=== PATIENT | female | born 1940 | race Caucasian/White ===

== ENCOUNTER → 2016-06-27 | Outpatient (CLI) | payer BC ==
[2016-06-27 14:17] LABS: BLOOD UREA NITROGEN 18 mg/dl (7-18); BUN/CREATININE RATIO 16.3 (10-20); CALCIUM 9.1 mg/dl (8.5-10.1); CARBON DIOXIDE 30 mmol/L (21-32); CHLORIDE 106 mmol/L (98-107); GLUCOSE 103 mg/dl (70-99); POTASSIUM 4.1 mmol/L (3.5-5.1); SODIUM 143 mmol/L (136-145)
[2016-06-27 14:20] LABS: CHOLESTEROL 187 mg/dl (0-200); CHOLESTEROL/HDL RATIO 3.1; HDL CHOLESTEROL 60 mg/dl; TRIGLYCERIDES 213 mg/dl (0-150); VERY LOW DENSITY LIPOPROT CALC 43 mg/dl
[2016-06-27 14:26] LABS: ESTIMATED AVERAGE GLUCOSE 117 mg/dl; HA1C FLAG Normal (Normal)
== END | disposition home or self-care (01) ==
LOC: C.LABSPEC 12:43
PROVIDERS: ATTEND Internal Medicine
DX: Z00.00 Encounter for general adult medical examination without abnormal findings (principal); E78.5 Hyperlipidemia, unspecified; R73.9 Hyperglycemia, unspecified; M19.90 Unspecified osteoarthritis, unspecified site

== ENCOUNTER → 2016-07-21 | Outpatient (CLI) | payer BC ==
--- NOTE | 2016-07-21 15:08 | MAMMOGRAPHY REPORT ---
BILATERAL DIGITAL SCREENING MAMMOGRAM TOMOSYNTHESIS WITH CAD: 07/21/2016 CLINICAL HISTORY: Routine screening. Patient has no complaints. TECHNIQUE: Breast tomosynthesis in addition to standard 2D mammography was performed. Current study was also evaluated with a Computer Aided Detection (CAD) system. COMPARISON: Comparison is made to exams dated: 07/15/2015 mammogram, 07/10/2014 mammogram, 07/09/2013 mammogram, 07/06/2012 mammogram, 07/01/2010 mammogram, and 06/30/2009 mammogram - [facility]. BREAST COMPOSITION: The tissue of both breasts is almost entirely fatty. FINDINGS: No suspicious masses, calcifications, or areas of architectural distortion are noted in e ither breast. There has been no significant interval change compared to prior exams. Scattered bilat eral benign-appearing calcifications are not significantly changed. IMPRESSION: ACR BI-RADS CATEGORY 2: BENIGN There is no mammographic evidence of malignancy. A 1 year screening mammogram is recommended. The p atient will receive written notification of the results. Approximately 10% of breast cancers are not detected with mammography. A negative mammographic repor t should not delay biopsy if a clinically suggestive mass is present. Mary Lennon M.D. ah/:07/21/2016 10:29:16 Guest Service Host: Keyla MILNER)(Kary), [facility] letter sent: Normal 1/2 BI-RADS Code: ACR BI-RADS Category 2: Benign
== END | disposition home or self-care (01) ==
LOC: C.MAMM 09:41
PROVIDERS: ATTEND Internal Medicine
DX: Z12.31 Encounter for screening mammogram for malignant neoplasm of breast (principal)

== ENCOUNTER → 2016-12-26 | Outpatient (CLI) | payer BC ==
[2016-12-26 13:43] LABS: ESTIMATED AVERAGE GLUCOSE 117 mg/dl; HA1C FLAG Normal (Normal)
[2016-12-26 13:45] LABS: CHOLESTEROL 196 mg/dl (0-200); GLUCOSE,FASTING 104 mg/dl (70-99)
[2016-12-26 13:52] LABS: CHOLESTEROL/HDL RATIO 3.2; HDL CHOLESTEROL 62 mg/dl; TRIGLYCERIDES 207 mg/dl (0-150); VERY LOW DENSITY LIPOPROT CALC 41 mg/dl
== END | disposition home or self-care (01) ==
LOC: C.LABSPEC 12:44
PROVIDERS: ATTEND Internal Medicine
DX: R73.9 Hyperglycemia, unspecified (principal); E78.5 Hyperlipidemia, unspecified

== ENCOUNTER → 2017-03-06 | Outpatient (CLI) | payer BC | END | disposition home or self-care (01) | LOC: C.LABSPEC 12:47 | PROVIDERS: ATTEND Internal Medicine | DX: E55.9 Vitamin D deficiency, unspecified (principal) ==

== ENCOUNTER → 2017-06-27 | Outpatient (CLI) | payer BC ==
[2017-06-27 13:29] LABS: HEMOGLOBIN A1C 5.8 % (4.5-5.6)
[2017-06-27 14:10] LABS: CHOLESTEROL 189 mg/dl (0-200); LDL CHOLESTEROL (DIRECT) 117 mg/dl
== END | disposition home or self-care (01) ==
LOC: C.LABSPEC 12:35
PROVIDERS: ATTEND Internal Medicine
DX: Z00.01 Encounter for general adult medical examination with abnormal findings (principal); R73.9 Hyperglycemia, unspecified

== ENCOUNTER → 2017-07-24 | Outpatient (CLI) | payer BC ==
--- NOTE | 2017-07-25 07:40 | MAMMOGRAPHY REPORT ---
BILATERAL DIGITAL SCREENING MAMMOGRAM TOMOSYNTHESIS WITH CAD: 07/24/2017 CLINICAL HISTORY: Routine screening. Patient has no complaints. TECHNIQUE: Breast tomosynthesis in addition to standard 2D mammography was performed. Current study was also evaluated with a Computer Aided Detection (CAD) system. COMPARISON: Comparison is made to exams dated: 07/21/2016 mammogram, 07/15/2015 mammogram, 07/10/2014 ma mmogram, 07/09/2013 mammogram, 07/06/2012 mammogram, and 07/05/2011 mammogram - [facility]ter. BREAST COMPOSITION: The tissue of both breasts is almost entirely fatty. FINDINGS: There are benign-appearing rodlike and coarse calcifications in the breasts. No suspicious mass, architectural distortion or cluster of microcalcifications is seen. IMPRESSION: ACR BI-RADS CATEGORY 1: NEGATIVE There is no mammographic evidence of malignancy. A 1 year screening mammogram is recommended. The pa tient will receive written notification of the results. Approximately 10% of breast cancers are not detected with mammography. A negative mammographic report should not delay biopsy if a clinically suggestive mass is present. Darline Lemons M.D. ay/:07/24/2017 10:17:38 Family Day Care Worker: Keyla MCDONALD(Rosaline)(Kary), [facility] letter sent: Normal 1/2 BI-RADS Code: ACR BI-RADS Category 1: Negative
== END | disposition home or self-care (01) ==
LOC: C.MAMM 09:37
PROVIDERS: ATTEND Internal Medicine
DX: Z12.31 Encounter for screening mammogram for malignant neoplasm of breast (principal)

== ENCOUNTER 2018-10-22 13:58 | Inpatient (IN) ==
[2018-10-22] MEDS ORDERED: fentaNYL citrate 100 MCG/2 ML VIAL IV STA (14:37)
[2018-10-22] MEDS ORDERED: ONDANSETRON INJ 2 MG/ML 2 ML VIAL IV STA (14:37)
[2018-10-22] MEDS ORDERED: SODIUM CHLORIDE 0.9% 1000ML 1,000 ML IV ONE (14:37)
--- NOTE | 2018-10-22 15:07 | Emergency Department Note ---
ED Provider Note CHIEF COMPLAINT: Diffuse abdominal pain, vomiting HISTORY OF PRESENTING ILLNESS: This is a 78-year-old female who presents to the emergency department by private vehicle with complaint of diffuse abdominal pain and vomiting that started around midnight last night. She states that she started with abdominal pain first and the vomiting started about 2 hours after that, she has vomited several times. The abdominal pain is diffuse, came on gr adually and has gotten progressively worse, she currently rates it as 7/10. She states that the pain feels better right after she vomits, but then starts to come back again. She has not tried any medications for her symptoms. She reports the emesis appears like mucus and bile, she denies any coffee-ground emesis or blood. She has not had any diarrhea with her symptoms. She denies any recent unusual foods or sick contacts with similar symptoms. She does note that she had some similar issues about 2 months ago where she was having difficulty eating and abdominal pain, she states that she was admitted at [facility] for dehydration and acute renal failure. She also states that she is followed by Dr. Dietz with GI, and had an endoscopy recently that did not show any issues. She has a history of IBS as well. She reports a history of an appendectomy and denies any other abdominal surgeries. She denies any headaches, vision changes, dizziness or syncope, neck pain, chest pain, shortness of breath, cough, back pain, urinary complaints, or unusual rash. REVIEW OF SYSTEMS: A complete 10 point review of systems was reviewed with the patient with pertinent positives and negatives as per history of present illness. All else were negative. PAST MEDICAL HISTORY: Hypertension, hyperlipidemia, GERD, IBS SOCIAL HISTORY: Lives at home with family, she is a former smoker ALLERGIES: None reviewed in chart PHYSICAL EXAM: CONSTITUTIONAL: Pleasant and cooperative. Nontoxic-appearing and in no acute distress. Mildly dehydrated, but otherwise well appearing and well nourished. HEENT: Normocephalic, atraumatic. PERRL, EOMI. TMs normal. Pharynx normal. Tacky mucous membranes. NECK: Supple, full active range of motion without discomfort. No cervical adenopathy. RESPIRATORY: Clear to auscultation bilaterally with no wheezing, crackles, rhonchi or stridor. Equal expansion bilaterally. CARDIOVASCULAR: Regular rate and rhythm with no murmurs, rubs or gallops. Normal peripheral perfusion. No edema. GASTROINTESTINAL: Diffuse tenderness throughout the abdomen, most tender in the lower abdomen. No rebound tenderness or guarding. Slightly distended, obese abdomen. Soft abdomen. No palpable masses or HSM. Hypoactive bowel sounds in all quadrants. No CVA tenderness bilaterally. MUSCULOSKELETAL: Full range of motion of all joints without discomfort. INTEGUMENTARY: No rash or other significant dermatologic conditions noted. NEUROLOGIC: Alert and oriented X 4 with normal affect. Normal speech. Normal gait observed. ED COURSE AND MEDICAL DECISION MAKING: CC: Patient presenting with complaint of abdominal pain, vomiting DIFFERENTIAL DIAGNOSIS: Includes, but not limited to gastroenteritis, gastritis, peptic ulcer disease, cholecystitis, cholelithiasis, pancreatitis, esophagitis, small bowel obstruction, infectious colitis, diverticulitis, acute coronary syndrome, dehydration, electrolyte abnormality, acute kidney injury, among others. INTERPRETATION OF LABS: Mild leukocytosis, no anemia, normal platelets, no significant electrolyte abnormalities, mildly elevated BUN and creatinine, normal liver enzymes and lipase. Troponin negative. UA pending. IMAGING: ABDOMEN AND PELVIS CT WITH IV CONTRAST CT DOSE: 890.66 mGycm HISTORY: diffuse abd pain, vomiting TECHNIQUE: Multiaxial CT images of the abdomen and pelvis were performed following the use of intravenous contrast. A dose lowering technique was utilized adhering to the principles of ALARA. COMPARISON STUDY: Abdomen and pelvis CT 09/20/2017. FINDINGS: The lung bases are clear. No pneumoperitoneum. No pneumatosis. No suspicious lytic or blastic osseous lesions. Small hiatus hernia. Multiple hypodense lesions within the liver and kidneys are again noted. Multiple hepatic and renal hypodense lesions are again noted. The majority of these are stable in size. A 2 cm hypodense lesion within the interpolar region of the left kidney has increased in size from the prior study when it measured 1 cm. This is best seen on image 120 The gallbladder, spleen, adrenal glands, and pancreas are unremarkable. No hydronephrosis. Calcified plaque within the normal caliber abdominal aorta. The main portal vein is patent. Normal bladder. Hysterectomy. Trace pelvic fluid. The appendix is not identified and reportedly surgically absent. The colon is completely decompressed. Fluid-filled and distended ileal loops within the midabdomen and right lower quadrant. There is trace mesenteric fluid surrounding the distended ileal loops. These measure up to 3.4 cm in diameter and are consistent with a small bowel obstruction. The transition point is located at the distal ileum within the right lower quadrant on image 55. IMPRESSION: 1. Multiple distended and fluid-filled loops of small bowel consistent with a small bowel obstruction with a transition point located at the distal ileum within the right lower quadrant. This is likely due to an adhesion. 2. Trace mesenteric/pelvic fluid. This may be reactive to the small bowel obstruction. 3. Multiple hepatic and renal hypodense lesions are again noted. The majority of these are stable in size. A 2 cm hypodense lesion within the interpolar region of the left kidney has increased in size from the prior study when it measured 1 cm. Continued follow-up recommended to ensure stability. EKG: Shows normal sinus rhythm with a rate of 96 bpm, normal axis, normal intervals, no ST or T wave abnormalities, no ectopy, no significant change when compared to previous EKG from 10/05/2017 by my interpretation. MEDICATION RECONCILIATION: I attest that I have personally reviewed the patient's current medication list. INITIAL VITAL SIGNS REVIEW: I reviewed the patient's initial vital signs and interpret them as follows: T: Afebrile; BP: Hypertensive; HR: Tachycardic; RR: Within normal limits; Pulse Ox: Within normal limits on room air. Blood pressure screening: The patient was found to have an elevated blood pressure and was referred to the inpatient team for further management. MDM SUMMARY: Patient was evaluated at bedside, history and physical exam performed. Patient is alert and oriented, in no acute distress, resting calmly in the stretcher. There is diffuse tenderness throughout the abdomen, most tender in the lower abdomen, with quiet bowel sounds. Patient complains of nausea but is not actively vomiting. She does appear mildly dehydrated. EKG reviewed at bedside, noting sinus rhythm with no acute ischemic changes. Orders were placed at bedside for labs, UA, IV fluid bolus for hydration, IV fentanyl for pain, IV Zofran for nausea, CT abdomen/pelvis to evaluate for abdominal pain and vomiting. Patient discussed with Dr. Guallpa, who also evaluated the patient and agrees with my assessment, plan, and disposition. Labs and imaging reviewed as above, mild leukocytosis and mildly elevated BUN/creatinine noted on labs. CT imaging notable for a small bowel obstruction with a transition point in the right lower quadrant, suspected secondary to adhesion. I spoke on the phone with Dr. Angel, general surgery, who did not feel the patient warranted urgent surgical intervention at this time. He recommends admitting the patient to the medicine service and he is happy to consult on the patient. Patient reassessed multiple times throughout ED stay, she has remained hemodynamically stable and afebrile, and reports her pain and nausea are improved after the above treatment. The patient and her family were updated on all results and plan for admission, they verbalized understanding and were agreeable to this plan. I spoke on the phone with PB Boyle with the [facility] Hospitalist service, who agrees to evaluate the patient for admission. The patient was stable at time of admission. The chart was completed utilizing [employer] Speech voice recognition software. Grammatical errors, random word insertions, pronoun errors, and incomplete sentences are an occasional consequence of this system due to software limitations, ambient noise, and hardware issues. Any formal questions or concerns about the content, text, or information contained within the body of this dictation should be directly addressed to the nurse practitioner for clarification. Impression & Plan SBO (small bowel obstruction) Past Med/Surg History Medical History SBO (small bowel obstruction) (Acute) GERD (gastroesophageal reflux disease) History of colon polyps Hyperlipidemia Hypertension Kidney failure recent admission 07/23/18-07/26/18 d/t dehydration Surgical History History of appendectomy History of bilateral cataract extraction History of biopsy of bladder benign History of colonoscopy History of dilatation and curettage x2 History of esophagogastroduodenoscopy (EGD) History of tooth extraction all teeth removed History of vaginal hysterectomy Family History Mother Family history of diabetes mellitus Father Family hx of colon cancer Other No family history of adverse response to anesthesia Social History Preferred Language: Vietnamese Communication Ability: Effective Beliefs That Will Affect Care: None Current Living Situation: Spouse Feels Safe at Home: Yes Smoking Status: Former smoker Second Hand Exposure: Yes (father smoked) Hx Alcohol Use: Yes Alcohol type: wine Hx Substance Use: No Results & Data Vital Signs Vital Signs - 24 hr 10/22/18 14:04 10/22/18 15:15 10/22/18 15:30 Temperature 36.3 C L Temperature Source Oral Sepsis Recent Fever Within 48 Hours No Sepsis New/Unexplained Change in Mental Status No Sepsis Action Taken by Nursing No Action Required Pulse Rate 113 H 85 Pulse Rate [Apical] 88 Pulse Rate from SpO2 Sensor 85 Respiratory Rate 20 18 14 Respiratory Effort / Characteristics Blood Pressure 172/87 H 147/87 H Blood Pressure [Left Arm] 162/78 H Blood Pressure Mean 115 107 Blood Pressure Mean [Left Arm] 106 Blood Pressure Position [Left Arm] Pulse Oximetry 99 99 96 Oxygen Delivery Method Room Air Room Air Room Air 10/22/18 16:02 10/22/18 17:00 10/22/18 17:07 Temperature Temperature Source Sepsis Recent Fever Within 48 Hours Sepsis New/Unexplained Change in Mental Status Sepsis Action Taken by Nursing Pulse Rate 86 89 Pulse Rate [Apical] 87 Pulse Rate from SpO2 Sensor 86 87 Respiratory Rate 15 13 16 Respiratory Effort / Characteristics Non-Labored Spontaneous Blood Pressure 154/97 H Blood Pressure [Left Arm] 154/98 H Blood Pressure Mean 116 Blood Pressure Mean [Left Arm] 116 Blood Pressure Position [Left Arm] Lying Pulse Oximetry 98 96 98 Oxygen Delivery Method Room Air Room Air Room Air 10/22/18 18:00 Temperature Temperature Source Sepsis Recent Fever Within 48 Hours Sepsis New/Unexplained Change in Mental Status Sepsis Action Taken by Nursing Pulse Rate 88 Pulse Rate [Apical] Pulse Rate from SpO2 Sensor Respiratory Rate 22 Respiratory Effort / Characteristics Blood Pressure Blood Pressure [Left Arm] Blood Pressure Mean Blood Pressure Mean [Left Arm] Blood Pressure Position [Left Arm] Pulse Oximetry Oxygen Delivery Method Laboratory Data Result diagrams: 10/22/18 15:10 10/22/18 15:10 Lab Results 10/22/18 10/22/18 Range/Units 15:10 15:10 WBC 12.22 H (4.8-10.8) K/uL RBC 4.84 (4.2-5.4) M/uL Hgb 14.6 (12.0-16.0) g/dL Hct 42.7 (37-47) % MCV 88.2 (80-100) fL MCH 30.2 (25-34) pg MCHC 34.2 (32-36) g/dL RDW Std Deviation 45.1 (36.4-46.3) fL RDW Coeff of Jonny 13.9 (11.5-14.5) % Plt Count 217 (130-400) K/uL MPV 8.9 (7.4-10.4) fL Immature Gran % (Auto) 0.2 % Neut % (Auto) 80.0 % Lymph % (Auto) 14.1 % Waller % (Auto) 5.3 % Eos % (Auto) 0.1 % Baso % (Auto) 0.3 % Immature Gran # (Auto) 0.03 H (0.00-0.02) K/uL Neut # (Auto) 9.77 H (1.4-6.5) K/uL Lymph # (Auto) 1.72 (1.2-3.4) K/uL Waller # (Auto) 0.65 H (0.11-0.59) K/uL Eos # (Auto) 0.01 (0-0.5) K/uL Baso # (Auto) 0.04 (0-0.2) K/uL Sodium 140 (136-145) mmol/L Potassium 4.4 (3.5-5.1) mmol/L Chloride 104 (98-107) mmol/L Carbon Dioxide 28 (21-32) mmol/L Anion Gap 8.0 (3-11) BUN 20 H (7-18) mg/dl Creatinine 1.37 H (0.6-1.2) mg/dl Est Cr Clr Drug Dosing 35.7 ml/min Est GFR ( Amer) 43.3 Est GFR (Non-Af Amer) 37.4 BUN/Creatinine Ratio 14.6 (10-20) Glucose 125 H (70-99) mg/dl Calcium 9.8 (8.5-10.1) mg/dl Magnesium 2.3 (1.8-2.4) mg/dl Total Bilirubin 0.5 (0.2-1) mg/dl AST 9 L (15-37) U/L ALT 19 (12-78) U/L Alkaline Phosphatase 80 (45-117) U/L Troponin I < 0.015 (0-0.045) ng/ml Total Protein 8.1 (6.4-8.2) gm/dl Albumin 4.2 (3.4-5.0) gm/dl Globulin 3.9 (2.5-4.0) gm/dl Albumin/Globulin Ratio 1.1 (0.9-2) Lipase 248 (73-393) U/L Administered Medications Ioversol (Optiray 320 100ml) 95 ml IV ONCE PRN PRN Reason: Interaction Checking Stop: 10/26/18 16:32 Last Admin: 10/22/18 16:33 Dose: 95 ml Documented by: [id number] Discontinued Medications Fentanyl Citrate (Fentanyl Citrate) 50 mcg IV NOW STA Stop: 10/22/18 14:38 Last Admin: 10/22/18 15:11 Dose: 50 mcg Documented by: [id number] Sodium Chloride (Nss 1000ml) 1,000 mls @ 999 mls/hr IV .Q1H1M ONE Stop: 10/22/18 15:37 Last Infusion: 10/22/18 16:08 Dose: 0 mls/hr Documented by: [id number] Admin: 10/22/18 15:07 Dose: 999 mls/hr Documented by: [id number] Ondansetron HCl (Zofran) 4 mg IV NOW STA Stop: 10/22/18 14:38 Last Admin: 10/22/18 15:10 Dose: 4 mg Documented by: [id number] Discharge Plan Visit Data Chief Complaint: Vomiting Stated Complaint: VOMITING ED Provider: Patrice Guallpa ED Midlevel Provider: Analy Hinds Discharge Problem: SBO (small bowel obstruction) Patient Disposition: Being Evaluated by Surgeon Discharge Instructions Interventions: ED Discharge Assessment Last Done: 10/22/18 18:56
[2018-10-22 15:20] LABS: Basophils # (auto) 0.04 K/uL (0-0.2); Basophils % (auto) 0.3 %; Eosinophils # (auto) 0.01 K/uL (0-0.5); Eosinophils % (auto) 0.1 %; Hematocrit (blood only) 42.7 % (37-47); Hemoglobin 14.6 g/dL (12.0-16.0); Immature Granulocytes # (auto) 0.03 K/uL (0.00-0.02); Immature Granulocytes % (auto) 0.2 %; Lymphocytes # (auto) 1.72 K/uL (1.2-3.4); Lymphocytes % (auto) 14.1 %; Mean Corpuscular Hgb Conc 34.2 g/dL (32-36); Mean Corpuscular Volume 88.2 fL (80-100); Mean Platelet Volume 8.9 fL (7.4-10.4); Monocytes # (auto) 0.65 K/uL (0.11-0.59); Monocytes % (auto) 5.3 %; Neutrophils # (auto) 9.77 K/uL (1.4-6.5); Platelet Count 217 K/uL (130-400); RDW Coefficient of Variation 13.9 % (11.5-14.5); RDW Standard Deviation 45.1 fL (36.4-46.3); Red Blood Count 4.84 M/uL (4.2-5.4); White Blood Count 12.22 K/uL (4.8-10.8)
[2018-10-22 15:35] LABS: Alanine Aminotransferase 19 U/L (12-78); Albumin Level 4.2 gm/dl (3.4-5.0); Aspartate Aminotransferase 9 U/L (15-37); BUN Creatinine Ratio 14.6 (10-20); Blood Urea Nitrogen 20 mg/dl (7-18); Calcium 9.8 mg/dl (8.5-10.1); Carbon Dioxide 28 mmol/L (21-32); Chloride 104 mmol/L (98-107); Creatinine Clr Calc Pharmacy 35.7 ml/min; Est GFR (African American) 43.3; Est GFR (Non-African American) 37.4; Glucose 125 mg/dl (70-99); Magnesium 2.3 mg/dl (1.8-2.4); Potassium 4.4 mmol/L (3.5-5.1); Sodium 140 mmol/L (136-145)
[2018-10-22 15:40] LABS: Albumin Globulin Ratio 1.1 (0.9-2); Alkaline Phosphatase 80 U/L (45-117); Bilirubin,Total 0.5 mg/dl (0.2-1); Globulin 3.9 gm/dl (2.5-4.0); Total Protein 8.1 gm/dl (6.4-8.2); Troponin I < 0.015 ng/ml (0-0.045)
[2018-10-22] MEDS ORDERED: IOVERSOL 100ml IV PRN (16:33)
--- NOTE | 2018-10-22 16:48 | CT Scan Report ---
ABDOMEN AND PELVIS CT WITH IV CONTRAST CT DOSE: 890.66 mGycm HISTORY: diffuse abd pain, vomiting TECHNIQUE: Multiaxial CT images of the abdomen and pelvis were performed following the use of intrave nous contrast. A dose lowering technique was utilized adhering to the principles of ALARA. COMPARISON STUDY: Abdomen and pelvis CT 09/20/2017. FINDINGS: The lung bases are clear. No pneumoperitoneum. No pneumatosis. No suspicious lytic or blast ic osseous lesions. Small hiatus hernia. Multiple hypodense lesions within the liver and kidneys are again noted. Multiple hepatic and renal hypodense lesions are again noted. The majority of these are stable in size. A 2 cm hypodense lesion within the interpolar region of the left kidney has increased in size from the prior study when it measured 1 cm. This is best seen on image 120 The gallbladder, spleen, adrenal glands, and pancreas are unremarkable. No hydronephrosis. Calcified plaque within the normal caliber abdominal aorta. The main portal vein is patent. Normal bladder. Hysterectomy. Trace pelvic fluid. The appendix is not identified and reportedly surgically absent. The colon is completel y decompressed. Fluid-filled and distended ileal loops within the midabdomen and right lower quadrant . There is trace mesenteric fluid surrounding the distended ileal loops. These measure up to 3.4 cm i n diameter and are consistent with a small bowel obstruction. The transition point is located at the distal ileum within the right lower quadrant on image 55. IMPRESSION: 1. Multiple distended and fluid-filled loops of small bowel consistent with a small bowel obstruction with a transition point located at the distal ileum within the right lower quadrant. This is likely due to an adhesion. 2. Trace mesenteric/pelvic fluid. This may be reactive to the small bowel obstruction. 3. Multiple hepatic and renal hypodense lesions are again noted. The majority of these are stable in size. A 2 cm hypodense lesion within the interpolar region of the left kidney has increased in size f rom the prior study when it measured 1 cm. Continued follow-up recommended to ensure stability. Electronically signed by: Bernardo Koehler M.D. 10/22/2018 4:47 PM
--- NOTE | 2018-10-22 17:44 | History & Physical Report ---
Date of Service October 22, 2018 Assessment & Plan (1) SBO (small bowel obstruction): Patient with a history of appendectomy and hysterectomy. On CT: 1. Multiple distended and fluid-filled loops of small bowel consistent with a small bowel obstruction with a transition point located at the distal ileum within the right lower quadrant. This is likely due to an adhesion. 2. Trace mesenteric/pelvic fluid. This may be reactive to the small bowel obstruction. - Admit obs med surg - ED discussed with Dr. Angel - no surgical intervention at this time - will consult surgery - IVF, pain control, anti emetics (2) Leukocytosis: WBCs 12.22 U/A with epithelial cells and leuk esterase May be inflammatory reaction from SBO vs enteritis? Hold off on abx for now, recheck CBC am Check stool for Cdiff, culture (3) Hyperlipidemia: Continue home pravastatin (4) Hypertension: Continue metoprolol (5) GERD (gastroesophageal reflux disease): Continue ranitidine (6) Renal lesion: On CT seen incidentally: Multiple hepatic and renal hypodense lesions are again noted. The majority of these are stable in size. A 2 cm hypodense lesion within the interpolar region of the left kidney has increased in size from the prior study when it measured 1 cm. Continued follow-up recommended to ensure stability. (7) DVT prophylaxis: SCDs History of Present Illness Ms. Toribio presented today for abdominal pain and vomiting starting at midnight last night. She has been feeling much better since arriving at the ED, pain is controlled, one episode of emesis. No changes in bowels. No fevers, aches or chills. Patient had recent admission to [facility] for [facility] due to dehydration secondary to difficulty swallowing. She had an EDG performed by Dr. Dietz which she says did not show any problems. Pmhx: spastic bowel, GERD, htn Primary Care Provider: Lio Muir MD Allergies Allergy/AdvReac Type Severity Reaction Status Date / Time chlorhexidine Allergy Intermediate RASH/HIVES Verified 10/22/18 14:54 iodine Allergy Intermediate RASH/HIVES Verified 10/22/18 14:54 Home Medications Home Medications Medication Instructions Recorded Confirmed Type Calcium 600 + D(3) 1 cap PO BID 08/06/18 10/22/18 History PreserVision AREDS 1 cap PO BID 08/06/18 10/22/18 History aspirin 81 mg PO QAM 08/06/18 10/22/18 History dicyclomine 20 mg PO BID 08/06/18 10/22/18 History metoprolol tartrate 50 mg PO HS 08/06/18 10/22/18 History pravastatin 40 mg PO HS 08/06/18 10/22/18 History ranitidine HCl 150 mg PO BID 08/06/18 10/22/18 History Past Med/Surg History Medical History GERD (gastroesophageal reflux disease) History of colon polyps Hyperlipidemia Hypertension Kidney failure recent admission 07/23/18-07/26/18 d/t dehydration Surgical History History of appendectomy History of bilateral cataract extraction History of biopsy of bladder benign History of colonoscopy History of dilatation and curettage x2 History of esophagogastroduodenoscopy (EGD) History of tooth extraction all teeth removed History of vaginal hysterectomy Family History Mother Family history of diabetes mellitus Father Family hx of colon cancer Other No family history of adverse response to anesthesia Social History Preferred Language: Welsh Communication Ability: Effective Beliefs That Will Affect Care: None Current Living Situation: Spouse Feels Safe at Home: Yes Smoking Status: Former smoker Second Hand Exposure: Yes (father smoked) Hx Alcohol Use: Yes Alcohol type: wine Hx Substance Use: No Review of Systems Review of Systems: All systems reviewed & are unremarkable except as noted in HPI & below Physical Exam Physical Exam: General: no distress Eyes: normal inspection, PERLL Respiratory: chest non tender, clear to auscultation, normal breath sounds, no respiratory distress, no accessory muscle use Cardiac: regular rate and rhythm, no rub or gallop, no murmur, no edema, no jvd GI/: active bowel sounds, no abd pain or tenderness, soft, non distended Extremities: normal range of motion, normal strength, non tender Neuro/Psych: alert and oriented x 3, normal mood and affect Skin: normal color, dry Results & Data Vital Signs (Past 12 Hours) Vital Signs Temp Pulse Pulse Resp BP BP Pulse Ox 10/22/18 17:07 87 16 154/98 H 98 10/22/18 15:30 85 14 147/87 H 96 10/22/18 15:15 88 18 162/78 H 99 10/22/18 14:04 36.3 C L 113 H 20 172/87 H 99 Code Status & VTE Plan Code Status No mechanical ventilation Supervising Physician Co-Signing Physician Notes ELEMENTARY TEACHER Physician Supervision Note: I discussed with Analy Norris ELEMENTARY TEACHER and agree with findings and plan as documented in the note. Any exceptions or clarifications are listed here: None Patient seen in presence of her family in the emergency department. She has no further nausea symptoms her abdomen is with hypoactive bowel sounds slightly distended soft and nontender Patient be observed for small bowel obstruction with hopes that conservative management will remedy her problem she will be hydrated given pain and antiemetic control. Documented By: Vikas Bartholomew PG Care Time/CCT Total # of Minutes Spent Total Time Spent with Patient: Total time spent is greater than 50% in coordination of care (as documented) at patient's floor/unit and/or counseling patient:
--- NOTE | 2018-10-22 18:45 | Surgery Consultation ---
Date of Consultation October 22, 2018 Assessment & Plan (1) SBO (small bowel obstruction): At this time the patient will be admitted to the medical service tomorrow for hypertension she states that she has not taken any antihypertensive pills today performed for rehydration we will hold off NG tube at this time the patient is not nauseated and is not keen in having one in Discussed the present findings with the patient and significant other at this time nonoperative management we will obtain an upper GI with small bowel follow- through for tomorrow and hopefully this will help resolve her obstruction without requiring surgery All questions were answered from the patient and family members including the fact that if patient continues to vomiting an NG tube may be need to be inserted Present on Admission?: Yes History of Present Illness Reason for Consultation: Call for the ER physician regarding patient with a small bowel obstruction History of Present Illness This 78-year-old female was had a history of gastroesophageal reflux had been evaluated by gastroenterology in the past developed some renal failure in the p ast with been transferred to [facility] She has a history of hypertension She had a history of an appendectomy in the remote past She had less than 24-hour history of abdominal pain with associated emesis in fact as I question her in the ER now with her family member at bedside she states that she had a small emesis about an hour or so ago it was bilious in nature Allergies Allergy/AdvReac Type Severity Reaction Status Date / Time chlorhexidine Allergy Intermediate RASH/HIVES Verified 10/22/18 14:54 iodine Allergy Intermediate RASH/HIVES Verified 10/22/18 14:54 Home Medications Home Medications Medication Instructions Recorded Confirmed Type Calcium 600 + D(3) 1 cap PO BID 08/06/18 10/22/18 History PreserVision AREDS 1 cap PO BID 08/06/18 10/22/18 History aspirin 81 mg PO QAM 08/06/18 10/22/18 History dicyclomine 20 mg PO BID 08/06/18 10/22/18 History metoprolol tartrate 50 mg PO HS 08/06/18 10/22/18 History pravastatin 40 mg PO HS 08/06/18 10/22/18 History ranitidine HCl 150 mg PO BID 08/06/18 10/22/18 History Patient History Medical History SBO (small bowel obstruction) GERD (gastroesophageal reflux disease) History of colon polyps Hyperlipidemia Hypertension Kidney failure recent admission 07/23/18-07/26/18 d/t dehydration Surgical History History of appendectomy History of bilateral cataract extraction History of biopsy of bladder benign History of colonoscopy History of dilatation and curettage x2 History of esophagogastroduodenoscopy (EGD) History of tooth extraction all teeth removed History of vaginal hysterectomy Family History Mother Family history of diabetes mellitus Father Family hx of colon cancer Other No family history of adverse response to anesthesia Social History Preferred Language: Faroese Communication Ability: Effective Beliefs That Will Affect Care: None Current Living Situation: Spouse Feels Safe at Home: Yes Smoking Status: Former smoker Second Hand Exposure: Yes (father smoked) Hx Alcohol Use: Yes Alcohol type: wine Hx Substance Use: No Review of Systems Review of Systems: As stated she does have a history of hypertension appropriately treated renal failure from dehydration and previous surgery appendectomy She denies any changes in weight the GI symptoms as stated with significant reflux disease and upper GI showed gastroesophageal dysmotility Physical Exam Physical Exam: The patient is resting comfortably in bed at this time in no acute distress denies any nausea The sclerae nonicteric Oropharyngeal and tongue moist Neck subtle Abdomen is softly distended there is no localized tenderness no masses no groin hernias Results & Data Vital Signs (Past 12 Hours) Vital Signs Temp Pulse Pulse Resp BP BP Pulse Ox 10/22/18 18:27 91 H 15 161/85 H 97 10/22/18 18:00 88 22 10/22/18 17:07 87 16 154/98 H 98 10/22/18 17:00 89 13 154/97 H 96 10/22/18 16:02 86 15 98 10/22/18 15:30 85 14 147/87 H 96 10/22/18 15:15 88 18 162/78 H 99 10/22/18 14:04 36.3 C L 113 H 20 172/87 H 99 The lab was reviewed along with CT scan
[2018-10-22] MEDS ORDERED: MoRPHine SULFATE 2 MG/ML CARP IV PRN (19:17)
[2018-10-22] MEDS ORDERED: ONDANSETRON INJ 2 MG/ML 2 ML VIAL IV PRN (19:17)
[2018-10-22] MEDS: SODIUM CHLORIDE 0.9% 1000ML 1,000 ML IV SCH (19:31)
[2018-10-22] MEDS: PRAVASTATIN SOD 40 MG TAB PO SCH (22:03)
[2018-10-22] MEDS: DICYCLOMINE HCL 20 MG TAB PO SCH (22:03)
[2018-10-22] MEDS: METOPROLOL TARTRATE 50 MG TAB PO SCH (22:03)
[2018-10-22] MEDS: CALCIUM 600MG + VIT D 400 IU TAB PO SCH (22:03)
[2018-10-22] MEDS: ACETAMINOPHEN 325 MG TAB PO PRN (22:23)
[2018-10-23] MEDS: SODIUM CHLORIDE 0.9% 1000ML 1,000 ML IV SCH ×2 (05:15→17:32)
[2018-10-23 07:12] LABS: Hematocrit (blood only) 36.8 % (37-47); Hemoglobin 11.9 g/dL (12.0-16.0); Mean Corpuscular Hgb Conc 32.3 g/dL (32-36); Mean Corpuscular Volume 90.6 fL (80-100); Mean Platelet Volume 8.7 fL (7.4-10.4); Platelet Count 174 K/uL (130-400); RDW Coefficient of Variation 14.2 % (11.5-14.5); RDW Standard Deviation 47.1 fL (36.4-46.3); Red Blood Count 4.06 M/uL (4.2-5.4); White Blood Count 6.23 K/uL (4.8-10.8)
[2018-10-23 07:40] LABS: BUN Creatinine Ratio 13.3 (10-20); Calcium 8.3 mg/dl (8.5-10.1); Creatinine Clr Calc Pharmacy 42.1 ml/min; Est GFR (Non-African American) 45.7; Potassium 3.8 mmol/L (3.5-5.1)
--- NOTE | 2018-10-23 08:16 | Surgery Progress Note ---
Date of Service October 23, 2018 Assessment & Plan (1) SBO (small bowel obstruction): 1 PAD feels better await UGI with SBFT At this time the patient will be admitted to the medical service tomorrow for hypertension she states that she has not taken any antihypertensive pills today performed for rehydration we will hold off NG tube at this time the patient is not nauseated and is not keen in having one in Discussed the present findings with the patient and significant other at this ti pa nonoperative management we will obtain an upper GI with small bowel follow- through for tomorrow and hopefully this will help resolve her obstruction without requiring surgery All questions were answered from the patient and family members including the fact that if patient continues to vomiting an NG tube may be need to be inserted Subjective feels better flatus no bm no nausea Physical Exam Physical Exam: abd softer non tender Results & Data Vital Signs (Past 12 Hours) Vital Signs Temp Pulse Resp BP BP Pulse Ox 10/23/18 07:28 36.9 C 75 16 147/77 H 95 10/22/18 23:29 36.7 C 65 16 111/70 97 10/22/18 21:58 80 18 143/80 H 98
[2018-10-23] MEDS: DICYCLOMINE HCL 20 MG TAB PO SCH ×2 (08:21→20:26)
[2018-10-23] MEDS: CALCIUM 600MG + VIT D 400 IU TAB PO SCH ×2 (08:21→20:26)
[2018-10-23] MEDS: ASPIRIN 81 MG ECTAB PO SCH (08:21)
--- NOTE | 2018-10-23 10:50 | Fluoroscopy Report ---
FL GI w/air small bowel RTN CLINICAL HISTORY: 78 years-old Female presenting with small bowel obstruction. TECHNIQUE: Car Rental Service Attendant abdominal radiograph was first obtained. Subsequently, a standard air-contrast upper GI series was then performed. Spot images of the esophagus and stomach were recorded in multiple obl iquities with upright and prone. The patient then consumed further oral contrast and a small follow-t hrough was performed. Overhead radiographs and spot compression images were obtained. Contrast was fo llowed until reaching the cecum. COMPARISON: CT performed the previous day. FINDINGS: The abdominal director clinical data radiograph shows nonobstructive bowel gas pattern and no gross pneumoperitoneum. No calcifications project over the kidneys. The patient swallowed barium without difficulty. The esophagus is structurally normal without evidenc e of intrinsic or extrinsic mass. The esophageal mucosal pattern is normal. No gastroesophageal reflu x was elicited by having the patient perform the Valsalva maneuver. The gastroesophageal junction dis tends normally. The stomach is normal in configuration and demonstrates normal distensibility. No mass or ulceration is identified. There was no evidence of gastritis. The duodenal bulb and sweep are unremarkable. On the small bowel follow-through, there is only mildly delayed transit time with contrast identified in the colon at 90 minutes. The small bowel mucosal pattern is normal. There is no evidence of stric ture or mass. The distal/terminal ileum are normal in appearance on the spot compression views. Fluoroscopy dosage (mGy): Not available. Fluoroscopy time: 2.4 minutes. Number or time of high level fluoroscopy (HLF), digital spot, or digital subtraction images: 33. IMPRESSION: Only mild delay in transit time to the colon. Apparent resolution of small bowel obstruction. This ma y suggest an intermittent partial bowel obstruction. Electronically signed by: Navdeep Hubbard M.D. 10/23/2018 10:49 AM
[2018-10-23] MEDS ORDERED: POLYETHYLENE (MIRALAX) 17 GM PACK PO PRN (11:28)
[2018-10-23] MEDS: ACETAMINOPHEN 325 MG TAB PO PRN (15:50)
--- NOTE | 2018-10-23 16:15 | Hospitalist Progress Note ---
Date of Service October 23, 2018 Assessment & Plan (1) SBO (small bowel obstruction): Patient with a history of appendectomy and hysterectomy. Imaging today showed resolved SBO - consulted surgery - advance diet to full liquids (2) Leukocytosis: WBCs 12.22 on admission - resolved Check stool for Cdiff, culture (3) Hyperlipidemia: Continue home pravastatin (4) Hypertension: Continue metoprolol (5) GERD (gastroesophageal reflux disease): Continue ranitidine (6) Renal lesion: On CT seen incidentally: Multiple hepatic and renal hypodense lesions are again noted. The majority of these are stable in size. A 2 cm hypodense lesion within the interpolar region of the left kidney has increased in size from the prior study when it measured 1 cm. Continued follow-up recommended to ensure stability. (7) DVT prophylaxis: SCDs Dispo: likely home tomorrow if tolerating po Subjective Ms. Toribio is feeling better today, no further pain or vomiting. She tolerated her clear liquid tray. No BM since admission Review of Systems Review of Systems: All systems reviewed & are unremarkable except as noted in HPI & below Physical Exam Physical Exam: General: no distress Eyes: normal inspection, PERLL Respiratory: chest non tender, clear to auscultation, normal breath sounds, no respiratory distress, no accessory muscle use Cardiac: regular rate and rhythm, no rub or gallop, no murmur, no edema, no jvd GI/: active bowel sounds, no abd pain or tenderness, soft, non distended Extremities: normal range of motion, normal strength, non tender Neuro/Psych: alert and oriented x 3, normal mood and affect Skin: normal color, dry Results & Data Vital Signs (Past 12 Hours) Vital Signs Temp Pulse Resp BP Pulse Ox 10/23/18 15:11 36.6 C 72 16 146/77 H 99 10/23/18 07:28 36.9 C 75 16 147/77 H 95 PG Care Time/CCT Total # of Minutes Spent Total Time Spent with Patient: Total time spent is greater than 50% in coordination of care (as documented) at patient's floor/unit and/or counseling patient:
[2018-10-23 20:24] VITALS: O2SAT 97
[2018-10-23] MEDS: PRAVASTATIN SOD 40 MG TAB PO SCH (20:26)
[2018-10-23] MEDS: DOCUSATE SODIUM 100 MG CAP PO SCH (20:26)
[2018-10-23] MEDS: METOPROLOL TARTRATE 50 MG TAB PO SCH (20:26)
[2018-10-24] MEDS: SODIUM CHLORIDE 0.9% 1000ML 1,000 ML IV SCH (03:22)
[2018-10-24 07:01] LABS: Hematocrit (blood only) 34.4 % (37-47); Hemoglobin 11.3 g/dL (12.0-16.0); Mean Corpuscular Hgb Conc 32.8 g/dL (32-36); Mean Corpuscular Volume 88.9 fL (80-100); Mean Platelet Volume 8.9 fL (7.4-10.4); Platelet Count 154 K/uL (130-400); RDW Coefficient of Variation 13.9 % (11.5-14.5); RDW Standard Deviation 45.3 fL (36.4-46.3); Red Blood Count 3.87 M/uL (4.2-5.4); White Blood Count 6.16 K/uL (4.8-10.8)
[2018-10-24 07:34] LABS: BUN Creatinine Ratio 11.2 (10-20); Calcium 8.8 mg/dl (8.5-10.1); Creatinine Clr Calc Pharmacy 43.2 ml/min; Est GFR (African American) 54.7; Est GFR (Non-African American) 47.2; Potassium 4.2 mmol/L (3.5-5.1)
--- NOTE | 2018-10-24 07:35 | Surgery Progress Note ---
Date of Service October 24, 2018 Assessment & Plan (1) SBO (small bowel obstruction): 2PAD Ugi with SBFT normal discussed with pt ok to d/c from surgical point diet as tolerated no need to f/u with us 1 PAD feels better await UGI with SBFT At this time the patient will be admitted to the medical service tomorrow for hypertension she states that she has not taken any antihypertensive pills today performed for rehydration we will hold off NG tube at this time the patient is not nauseated and is not keen in having one in Discussed the present findings with the patient and significant other at this time nonoperative management we will obtain an upper GI with small bowel follow-through for tomorrow and hopefully this will help resolve her obstruction without requiring surgery All questions were answered from the patient and family members including the fact that if patient continues to vomiting an NG tube may be need to be inserted Subjective 10/24/18 grace mahan had multiple bm during night no nausea or abd pain feels better flatus no bm no nausea Physical Exam Physical Exam: alert coherent abd completely benign Results & Data Vital Signs (Past 12 Hours) Vital Signs Temp Pulse Resp BP Pulse Ox 10/23/18 23:24 36.4 C L 70 16 149/76 H 97 10/23/18 20:23 77 18 136/61 97
[2018-10-24 07:57] VITALS: BP 138/79; TEMP 97.9
--- NOTE | 2018-10-24 09:07 | Discharge Summary ---
Date of Service October 24, 2018 Admission HPI Per Admitting Provider Ms. Toribio presented today for abdominal pain and vomiting starting at midnight last night. She has been feeling much better since arriving at the ED, pain is controlled, one episode of emesis. No changes in bowels. No fevers, aches or chills. Patient had recent admission to [facility] for [facility] due to dehydration secondary to difficulty swallowing. She had an EDG performed by Dr. Dietz which she says did not show any problems. Principal Diagnosis SBO Discharge Exam Constitutional WD/WN, vitals as above Respiratory normal respiratory effort, lungs clear to auscultation Cardiovascular RRR, no murmur, no edema Gastrointestinal (Abdomen) Inspection/Auscultation: abdomen normal to inspection and normal bowel sounds; abdomen not distended Percussion/Palpation: abdomen soft; abdomen nontender and no guarding Musculoskeletal no cyanosis or clubbing, extremities motor strength 5/5 Skin no rashes, warm and dry Neurologic moves all extremities and awake Psychiatric A+Ox3, euthymic affect Discharge Data Allergies Allergy/AdvReac Type Severity Reaction Status Date / Time chlorhexidine Allergy Intermediate RASH/HIVES Verified 10/22/18 14:54 iodine Allergy Intermediate RASH/HIVES Verified 10/22/18 14:54 Consultations 10/22/18 17:25 ED Decision to Admit Stat 10/22/18 19:17 Consult General Surgery Routine Ordered Studies 10/22/18 14:37 CT abd pelvis IV con only Stat 10/23/18 09:00 [place] GI w/air & small bowel RTN Routine Hospital Course (1) SBO (small bowel obstruction): Patient with a history of appendectomy and hysterectomy. Imaging 10/24 showed resolved SBO - consulted surgery - no surgery indicated - surgery has signed off. - advanced diet and patient tolerated well, had BM overnight. No further abdominal pain or nausea (2) Leukocytosis: WBCs 12.22 on admission - resolved Stool culture pending (3) Hyperlipidemia: Continue home pravastatin (4) Hypertension: Continue metoprolol (5) GERD (gastroesophageal reflux disease): Continue ranitidine (6) Renal lesion: On CT seen incidentally: Multiple hepatic and renal hypodense lesions are again noted. The majority of these are stable in size. A 2 cm hypodense lesion within the interpolar region of the left kidney has increased in size from the prior study when it measured 1 cm. Continued follow-up recommended to ensure stability. (7) DVT prophylaxis: SCDs Total Time Total Time Spent Total Time Spent (In Minutes): greater than 30 minutes Discharge Plan Discharge Items Patient Disposition: Home - Self-Care Reason For Visit: SBO Discharge Diagnosis: SBO Activity: Resume your previous activity Non-emergency contact: Primary Care Provider Call non-emergency contact if: you have any medication questions Follow-up/Referrals: Lio Muir MD [Primary Care Provider] - 10/31/18 9:45 am (Please, follow up with Dr. Arnol Gore on MondayOctober 31 at 9:45 am. *If you need to change this appointment, call the office at [phone].) Diet: Regular Diet Comment: advance diet as tolerated Addtl Provider Instructions: Please keep your follow up appointment above. On your CT at admission you had a number of renal and liver lesions that have been seen on previous imaging. One lesion has changed size and you will need to have this followed by your primary care provider. Prescriptions: Continued pravastatin 40 mg Tablet 40 mg PO HS RF: 0 aspirin 81 mg Tablet,Delayed Release (Dr/Ec) 81 mg PO QAM RF: 0 dicyclomine 20 mg Tablet 20 mg PO BID RF: 0 metoprolol tartrate 50 mg Tablet 50 mg PO HS RF: 0 ranitidine HCl 150 mg Capsule 150 mg PO BID RF: 0 Calcium 600 + D(3) 600 mg calcium- 200 unit Capsule 1 cap PO BID RF: 0 PreserVision AREDS [id number] Capsule 1 cap PO BID RF: 0 Stand-Alone Forms: [facility] Discharge Orders: Discharge Order (Routine); Ordered 10/24/18 Ordered By: Analy Norris Admission Data Admit Date/Time: 10/22/18 18:17 Attending Provider: Vikas Bartholomew Admit Provider: Vikas Bartholomew Primary Care Provider: Lio Muir Other Providers: Vikas Bartholomew ; Nj Angel Service: Surgical Services Other Pending Studies at Discharge: Yes Studies:: stool culture
[2018-10-24] MEDS: CALCIUM 600MG + VIT D 400 IU TAB PO SCH (09:27)
[2018-10-24] MEDS: DOCUSATE SODIUM 100 MG CAP PO SCH (09:27)
[2018-10-24] MEDS: DICYCLOMINE HCL 20 MG TAB PO SCH (09:27)
[2018-10-24] MEDS: ASPIRIN 81 MG ECTAB PO SCH (09:27)
[2018-10-24 09:40] VITALS: PULSE 87
== END 2018-10-24 10:30 | disposition home or self-care (01) | DRG 390 ==
LOC: ED 13:58 → 3W 18:17
DX: I10 Essential (primary) hypertension; D72.829 Elevated white blood cell count, unspecified; Z88.3 Allergy status to other anti-infective agents; Z87.891 Personal history of nicotine dependence; K58.9 Irritable bowel syndrome, unspecified; Z88.8 Allergy status to other drugs, medicaments and biological substances; K21.9 Gastro-esophageal reflux disease without esophagitis; Z79.82 Long term (current) use of aspirin; E78.5 Hyperlipidemia, unspecified; Z79.899 Other long term (current) drug therapy; K56.50 Intestinal adhesions [bands], unspecified as to partial versus complete obstruction

== ENCOUNTER 2022-11-27 12:36 | Inpatient (IN) ==
[2022-11-27] MEDS ORDERED: ONDANSETRON INJ 2 MG/ML 2 ML VIAL IV STA (12:52)
[2022-11-27] MEDS ORDERED: SODIUM CHLORIDE 0.9% 1000ML 1,000 ML IV ONE (12:52)
[2022-11-27] MEDS ORDERED: MoRPHine SULFATE 4 MG/ML 1 ML CARP\\VIAL IV STA (12:52)
[2022-11-27] MEDS ORDERED: diphenhydrAMINE 50 MG/ML VIAL IV ONE (12:54)
--- NOTE | 2022-11-27 12:58 | Emergency Department Note ---
Impression & Plan SBO (small bowel obstruction) ADMIT ED Provider Note HPI: The patient is an 82-year-old female with history of previous small bowel obstruction, presents emergency department chief complaint of nausea and vomiting as well as some mid abdominal discomfort that began overnight. Patient states she has vomited multiple times overnight and this morning. On arrival here to the ED the patient is moderately hypertensive at 151/83, pulse rate is elevated at 112, patient is otherwise hemodynamically stable and saturating well on room air. ROS: - Per HPI Differential Diagnosis: Small bowel obstruction, viral gastroenteritis, acute cholecystitis, acute appendicitis, acute diverticulitis, amongst other potential pathologies. *Outpatient medications and allergy history reviewed. *Pertinent external medical records reviewed. PE: General: Alert HEENT: Normocephalic, trachea midline Eyes: Extraocular eye movement is intact, no scleral erythema Pulmonary: Clear to auscultation bilaterally, no wheezing Cardio: Regular rate and rhythm GI: Abdomen is soft to palpation, there is mild distention, mild tenderness to palpation diffusely without guarding or rigidity : No suprapubic tenderness MSK: No evidence of trauma or malformation of the extremities, no edema Skin: No evidence of rash Neuro: Alert, no focal deficits Psychiatric: Cooperative revenue audit clerk: (As interpreted by myself): - An order was placed for continuous cardiac monitoring - Patient was noted to be in sinus tachycardia with a rate of 105 EKG: (As interpreted by myself): Rate: 109 Rhythm: Sinus tachycardia Intervals: Within normal limits ST changes: No ST elevation Time: 1256 Interventions provided in ED: -IV fluid bolus, IV morphine, IV Zofran Medical Decision Making: Shortly after the patient arrived IV was established lab work obtained, patient was maintained on psychiatric aide instructor. Lab work shows a leukocytosis at 12.69, hemoglobin is normal, platelet count is normal, CMP does not show any critical findings, lactic acid is noted to be elevated to 2.5. EKG reviewed by myself shows sinus tachycardia without any acute ischemic changes. Patient was given IV fluids as well as IV morphine and IV Zofran for her symptoms. CT imaging the abdomen pelvis shows evidence of a partial small bowel obstruction. Patient states she feels improved on my reassessment following IV fluids as well as morphine and Zofran. She is no longer actively vomiting and following discussion with the patient and she would like to forego NG tube at this time which I think is reasonable. She states that her previous small bowel obstruction did resolve without an NG tube or surgical intervention. I discussed the above findings with the on-call hospitalist, Dr. Frey, and the patient will be placed for admission in stable condition for further management. Consultants: Hospitalist, Dr. Frey Disposition discussion held by myself with: Patient and at the bedside Diagnosis: 1. Partial small bowel obstruction, acute 2. Nausea and vomiting, acute 3. Abdominal pain, acute 4. Lactic acidosis, acute Disposition: Admission Wes Yang DO Emergency Medicine Past Med/Surg History Medical History Fecal urgency GERD (gastroesophageal reflux disease) Hiatal hernia History of colon polyps Hyperlipidemia Hypertension Kidney failure recent admission 07/23/18-07/26/18 d/t dehydration SBO (small bowel obstruction) (~2019) Surgical History History of appendectomy History of bilateral cataract extraction History of biopsy of bladder (~2018) benign History of colonoscopy [place] DR. Dietz, 2022 History of dilatation and curettage x2 History of esophagogastroduodenoscopy (EGD) (~2018) History of tooth extraction all teeth removed History of vaginal hysterectomy Family History Mother Diabetes Cerebral aneurysm Stroke Father Colorectal cancer Other No family history of adverse response to anesthesia Denies family history of Ovarian cancer Prostate cancer Myocardial infarction Breast cancer Lung cancer Lung disease Social History Smoking Status: Former smoker Tobacco Type: Cigarettes Second Hand Exposure: No; Do You Dip or Chew Tobacco: No; Hx Alcohol Use: No Hx Substance Use: No Preferred Language: Persian Communication Ability: Effective Visual Impairment: Partially Limited Hearing Ability: Normal Liver Trimmer Required: No Beliefs That Will Affect Care: None marital status: Current Living Situation: Spouse current occupational status: retired How many Children do You have: 3 Feels Safe at Home: Yes Childhood Exposure to Second-Hand Smoke: Yes (father smoked) caffeine: No Dental Care, Regularly: No Physical Activity Frequency: Does not Exercise Seatbelt Use: always Sunscreen Use: Yes Assistive Devices: None Allergies Allergies Allergy/AdvReac Type Severity Reaction Status Date / Time chlorhexidine Allergy Intermediate RASH/HIVES Verified 11/27/22 14:54 iodine Allergy Intermediate RASH/HIVES Verified 11/27/22 14:54 Home Meds Home Medications Medication Instructions Recorded Confirmed calcium carbonate 600 mg-vitamin 1 cap PO BID 08/06/18 11/27/22 D3 5 mcg (200 unit) capsule (Calcium 600 + D(3)) vitamins A,C,D-pndq-lwxuwy 4,296 1 cap PO BID 08/06/18 11/27/22 mcg-226 mg-90 mg capsule (PreserVision AREDS) acetaminophen 500 mg tablet 1,000 mg PO Q6H PRN Pain 07/14/19 11/27/22 (Tylenol Extra Strength) Previous Rx's Medication Instructions Recorded famotidine 20 mg tablet 20 mg PO BID #180 tabs 03/02/22 hydrochlorothiazide 12.5 mg tablet 12.5 mg PO DAILY #90 tabs 05/20/22 pravastatin 40 mg tablet 40 mg PO DAILY #90 tabs 05/20/22 metoprolol tartrate 25 mg tablet 25 mg PO BID #180 tabs 08/15/22 Results & Data (ED) Vital Signs Vital Signs - 24 hr 11/27/22 12:41 11/27/22 13:16 11/27/22 13:26 Temperature 36.5 C Temperature Source Oral Pulse Rate 112 H 99 H 103 H Pulse Rate from SpO2 Sensor Pulse Rhythm Regular Respiratory Rate 20 15 Respiratory Effort / Characteristics Non-Labored Respiratory Depth Normal Blood Pressure 151/83 H Blood Pressure Mean 105 Pulse Oximetry 100 99 Oxygen Delivery Method Room Air Room Air Sepsis Recent Fever Within 48 Hours No Sepsis New/Unexplained Change in Mental Status N/A Sepsis Action Taken by Nursing No Action Required 11/27/22 13:15 Temperature Temperature Source Pulse Rate 101 H Pulse Rate from SpO2 Sensor 100 H Pulse Rhythm Respiratory Rate 15 Respiratory Effort / Characteristics Respiratory Depth Blood Pressure 139/69 Blood Pressure Mean 92 Pulse Oximetry 99 Oxygen Delivery Method Room Air Sepsis Recent Fever Within 48 Hours Sepsis New/Unexplained Change in Mental Status Sepsis Action Taken by Nursing Laboratory Data 11/27/22 13:03 11/27/22 13:03 Lab Results 11/27/22 11/27/22 11/27/22 Range/Units 13:03 13:03 13:03 WBC 12.69 H (4.8-10.8) K/ul RBC 5.15 (4.20-5.40) M/uL Hgb 15.3 (12.0-16.0) g/dl Hct 45.0 (37.0-47.0) % MCV 87.4 (80.0-100.0) fL MCH 29.7 (25.0-34.0) pg MCHC 34.0 (32.0-36.0) g/dL RDW Std Deviation 40.7 (36.4-46.3) fL RDW Coeff of Jonny 12.8 (11.5-14.5) % Plt Count 241 (130-400) K/uL MPV 9.1 L (9.4-12.4) fL Immature Gran % (Auto) 0.2 % Neut % (Auto) 87.8 % Lymph % (Auto) 8.7 % [place] % (Auto) 2.8 % Eos % (Auto) 0.1 % Baso % (Auto) 0.4 % Neut # (Auto) 11.14 H (1.40-6.50) K/uL Lymph # (Auto) 1.10 L (1.2-3.4) K/uL [place] # (Auto) 0.36 (0.11-0.59) K/uL Eos # (Auto) 0.01 (0-0.50) K/uL Baso # (Auto) 0.05 (0-0.2) K/uL Immature Gran # (Auto) 0.03 (0.01-0.20) K/uL Sodium 136 (136-145) mmol/L Potassium 3.9 (3.5-5.1) mmol/L Chloride 99 (98-107) mmol/L Carbon Dioxide 26 (21-32) mmol/L Anion Gap 11 (3-11) BUN 20 (6-23) mg/dl Creatinine 1.14 (0.6-1.2) mg/dl Est Cr Clr Drug Dosing Not Reportable Est GFR ( Amer) 52.6 ml/min Est GFR (Non-Af Amer) 45.4 ml/min BUN/Creatinine Ratio 17.5 (10-20) Glucose 170 H (70-99(Fasting)) mg/dl Lactate 2.5 H* (0.4-2.0) mmol/L Calcium 10.3 (8.6-10.3) mg/dl Total Bilirubin 0.8 (0.2-1.0) mg/dl AST 15 (13-39) U/L ALT 10 (7-52) U/L Alkaline Phosphatase 70 (34-104) U/L Total Protein 7.8 (6.0-8.3) gm/dl Albumin 4.6 (3.4-5.0) gm/dl Globulin 3.2 (2.5-4.0) gm/dl Albumin/Globulin Ratio 1.4 (0.9-2) Lipase 56 (11-82) U/L 11/27/22 Range/Units 14:45 WBC (4.8-10.8) K/ul RBC (4.20-5.40) M/uL Hgb (12.0-16.0) g/dl Hct (37.0-47.0) % MCV (80.0-100.0) fL MCH (25.0-34.0) pg MCHC (32.0-36.0) g/dL RDW Std Deviation (36.4-46.3) fL RDW Coeff of Jonny (11.5-14.5) % Plt Count (130-400) K/uL MPV (9.4-12.4) fL Immature Gran % (Auto) % Neut % (Auto) % Lymph % (Auto) % [place] % (Auto) % Eos % (Auto) % Baso % (Auto) % Neut # (Auto) (1.40-6.50) K/uL Lymph # (Auto) (1.2-3.4) K/uL [place] # (Auto) (0.11-0.59) K/uL Eos # (Auto) (0-0.50) K/uL Baso # (Auto) (0-0.2) K/uL Immature Gran # (Auto) (0.01-0.20) K/uL Sodium (136-145) mmol/L Potassium (3.5-5.1) mmol/L Chloride (98-107) mmol/L Carbon Dioxide (21-32) mmol/L Anion Gap (3-11) BUN (6-23) mg/dl Creatinine (0.6-1.2) mg/dl Est Cr Clr Drug Dosing Est GFR ( Amer) ml/min Est GFR (Non-Af Amer) ml/min BUN/Creatinine Ratio (10-20) Glucose (70-99(Fasting)) mg/dl Lactate 1.6 (0.4-2.0) mmol/L Calcium (8.6-10.3) mg/dl Total Bilirubin (0.2-1.0) mg/dl AST (13-39) U/L ALT (7-52) U/L Alkaline Phosphatase (34-104) U/L Total Protein (6.0-8.3) gm/dl Albumin (3.4-5.0) gm/dl Globulin (2.5-4.0) gm/dl Albumin/Globulin Ratio (0.9-2) Lipase (11-82) U/L Administered Medications Lactated Ringer's (Lr) 1,000 mls @ 80 mls/hr IV .[id number] SUBHA Stop: 12/27/22 15:29 Last Admin: 11/27/22 15:54 Dose: 80 mls/hr Documented By: BIRGIT Discontinued Medications Diphenhydramine HCl (Diphenhydramine 50 Mg/Ml Vial) 50 mg IV ONE ONE Stop: 11/27/22 12:55 Last Admin: 11/27/22 13:53 Dose: Not Given Documented By: COLEMAN Sodium Chloride (Nss 1000ml) 1,000 mls @ 999 mls/hr IV .Q1H1M ONE Stop: 11/27/22 13:52 Last Infusion: 11/27/22 14:12 Dose: 0 mls/hr Documented By: Admin: 11/27/22 13:07 Dose: 999 mls/hr Documented By: COLEMAN Ioversol (Optiray 320 100ml) 94 ml IV ONCE ONE Stop: 11/27/22 13:58 Last Admin: 11/27/22 14:01 Dose: 94 ml Documented By: PATITO Methylprednisolone (Methylprednisolone 40 Mg/Ml Vial) 40 mg IV NOW ONE Stop: 11/27/22 12:55 Last Admin: 11/27/22 13:53 Dose: Not Given Documented By: COLEMAN Morphine Sulfate (Morphine Sulfate 4 Mg/Ml 1 Ml Carp\Vial) 4 mg IV NOW STA Stop: 11/27/22 12:53 Last Admin: 11/27/22 13:07 Dose: 4 mg Documented By: COLEMAN Ondansetron HCl (Ondansetron Inj 2 Mg/Ml 2 Ml Vial) 4 mg IV NOW STA Stop: 11/27/22 12:53 Last Admin: 11/27/22 13:07 Dose: 4 mg Documented By: COLEMAN Imaging Data Radiologist's Impression: Abdomen/Pelvis CT 11/27/22 12:54 CT abd pelvis IV con only CLINICAL HISTORY: N/V eval for SBO TECHNIQUE: Helical axial images of the abdomen and pelvis were obtained and displayed. Automated dose lowering techniques and/or adjustment according to patient size were utilized for this exam. This exam was performed with intravenous contrast. CT DOSE: 1362.70 mGy.cm COMPARISON: Comparison is made to pelvis 10/22/2018 FINDINGS: Lower chest: No acute abnormality. Liver: Multiple hepatic cysts are seen. Gallbladder and biliary tree: No calcified gallstones. Normal caliber wall. No intra- or extrahepatic biliary ductal dilation. Pancreas: Unremarkable, no focal lesions. Spleen: Unremarkable. Adrenals: Unremarkable. Kidneys and ureters: Multiple renal cysts are seen. Bladder: Unremarkable. Reproductive organs: Patient is status post hysterectomy. Bowel: Multiple dilated loops of small bowel are seen in the right lower quadrant with gradual transition. There is a small hiatal hernia. The colon is not decompressed. Lymph nodes Retroperitoneal: Unremarkable. Pelvic: Unremarkable. Mesenteric: Unremarkable. Peritoneum: Normal. Vessels: Atherosclerotic calcifications are seen. Abdominal wall: A fat-containing umbilical hernia is seen. Bones: Unremarkable. IMPRESSION: Multiple dilated loops of small bowel are seen compatible with early/partial small bowel obstruction. ACT 112: Negative or not required by law. Electronically signed by: Leandro Recinos M.D. 11/27/2022 2:23 PM Discharge Plan Visit Data Chief Complaint: Abdominal Pain Stated Complaint: VOMITING, ABDOMINAL PAIN, DECREASED PO INTAKE ED Provider: Wes Yang Discharge Problem: SBO (small bowel obstruction) Forms Stand Alone Forms: My [employer] Prescriptions Prescriptions: No Action famotidine 20 mg tablet 20 mg PO BID Qty: 180 3RF pravastatin 40 mg tablet 40 mg PO DAILY Qty: 90 3RF hydrochlorothiazide 12.5 mg tablet 12.5 mg PO DAILY Qty: 90 3RF metoprolol tartrate 25 mg tablet 25 mg PO BID Qty: 180 3RF acetaminophen [Tylenol Extra Strength] 500 mg Tablet 1,000 mg PO Q6H PRN (Reason: Pain) Calcium 600 + D(3) 600 mg calcium- 200 unit Capsule 1 cap PO BID PreserVision AREDS [id number] Capsule 1 cap PO BID Referrals Referrals: Lazaro Hameed DO [Primary Care Provider] -
[2022-11-27 13:24] LABS: Basophils # (auto) 0.05 K/uL (0-0.2); Basophils % (auto) 0.4 %; Eosinophils # (auto) 0.01 K/uL (0-0.50); Eosinophils % (auto) 0.1 %; Hemoglobin 15.3 g/dl (12.0-16.0); Immature Granulocytes # (auto) 0.03 K/uL (0.01-0.20); Immature Granulocytes % (auto) 0.2 %; Lymphocytes % (auto) 8.7 %; Mean Corpuscular Hemoglobin 29.7 pg (25.0-34.0); Mean Corpuscular Volume 87.4 fL (80.0-100.0); Mean Platelet Volume 9.1 fL (9.4-12.4); Monocytes # (auto) 0.36 K/uL (0.11-0.59); Monocytes % (auto) 2.8 %; Neutrophils # (auto) 11.14 K/uL (1.40-6.50); Neutrophils % (auto) 87.8 %; Platelet Count 241 K/uL (130-400); RDW Coefficient of Variation 12.8 % (11.5-14.5); RDW Standard Deviation 40.7 fL (36.4-46.3); Red Blood Count 5.15 M/uL (4.20-5.40); White Blood Count 12.69 K/ul (4.8-10.8)
[2022-11-27 13:33] LABS: Alanine Aminotransferase 10 U/L (7-52); Albumin Globulin Ratio 1.4 (0.9-2); Albumin Level 4.6 gm/dl (3.4-5.0); Alkaline Phosphatase 70 U/L (34-104); Anion Gap 11 (3-11); Aspartate Aminotransferase 15 U/L (13-39); BUN Creatinine Ratio 17.5 (10-20); Bilirubin,Total 0.8 mg/dl (0.2-1.0); Blood Urea Nitrogen 20 mg/dl (6-23); Calcium 10.3 mg/dl (8.6-10.3); Carbon Dioxide 26 mmol/L (21-32); Chloride 99 mmol/L (98-107); Est GFR (African American) 52.6 ml/min; Est GFR (Non-African American) 45.4 ml/min; Globulin 3.2 gm/dl (2.5-4.0); Glucose 170 mg/dl (70-99(Fasting)); Lipase 56 U/L (11-82); Potassium 3.9 mmol/L (3.5-5.1); Sodium 136 mmol/L (136-145); Total Protein 7.8 gm/dl (6.0-8.3)
[2022-11-27] MEDS ORDERED: OPTIRAY 320 100ml IV ONE (13:57)
--- NOTE | 2022-11-27 14:25 | CT Scan Report ---
CT abd pelvis IV con only CLINICAL HISTORY: N/V eval for SBO TECHNIQUE: Helical axial images of the abdomen and pelvis were obtained and displayed. Automated dose lowering techniques and/or adjustment according to patient size were utilized for this exam. This e xam was performed with intravenous contrast. CT DOSE: 1362.70 mGy.cm COMPARISON: Comparison is made to pelvis 10/22/2018 FINDINGS: Lower chest: No acute abnormality. Liver: Multiple hepatic cysts are seen. Gallbladder and biliary tree: No calcified gallstones. Normal caliber wall. No intra- or extrahepatic biliary ductal dilation. Pancreas: Unremarkable, no focal lesions. Spleen: Unremarkable. Adrenals: Unremarkable. Kidneys and ureters: Multiple renal cysts are seen. Bladder: Unremarkable. Reproductive organs: Patient is status post hysterectomy. Bowel: Multiple dilated loops of small bowel are seen in the right lower quadrant with gradual transi tion. There is a small hiatal hernia. The colon is not decompressed. Lymph nodes Retroperitoneal: Unremarkable. Pelvic: Unremarkable. Mesenteric: Unremarkable. Peritoneum: Normal. Vessels: Atherosclerotic calcifications are seen. Abdominal wall: A fat-containing umbilical hernia is seen. Bones: Unremarkable. IMPRESSION: Multiple dilated loops of small bowel are seen compatible with early/partial small bowel obstruction. ACT 112: Negative or not required by law. Electronically signed by: Leandro Recinos M.D. 11/27/2022 2:23 PM
--- NOTE | 2022-11-27 15:26 | History & Physical Report ---
Date of Service November 27, 2022 Assessment & Plan (1) SBO (small bowel obstruction): Plan: SBO, suspect adhesional - Leukocytosis of 12.69 - CT-A/P: Multiple dilated loops of small bowel are seen compatible with early/partial small bowel obstruction. - Lactate 2.5 --> 1.6 after 1 L fluids - Last SBO 2018. DIdn't need NGT, - Hx of appendectomy, no lysis of adhesions past - Zofran helped with fluid -Patient's mass has resolved without NGT which she would prefer to avoid if possible. Agreeable placement if her symptoms worsen or she develops recurrent nausea/vomiting Admit on LR 80 cc/h, strict NPO Recommend treatment with n.p.o., NGT if worsening and then if continues to be refractory then can consult surgery for potential lysis of adhesions HTN Oral antihypertensives held while n.p.o., normotensive at admission Metoprolol 25 mg p.o. twice daily converted to every 6 hours IV 2.5 mg dosing prevent beta-teresa withdrawal, will require telemetry for IV antihypertensive administration HLD Resume pravastatin once no longer n.p.o., held on admit CKD Cr baseline 1.17-1.4 - Admit Cr 1.14 - Tremd BMP daily DVT prophylaxis: Lovenox Diet: N.p.o. Disposition: PCU for IV metoprolol CODE STATUS: Full code (2) GERD (gastroesophageal reflux disease): (3) Hyperlipidemia: (4) Hypertension: History of Present Illness Primary Care Provider: Lazaro Hameed DO Melissa Toribio is an 82-year-old female with a past medical history of GERD, CKD, obesity, prior small bowel obstructions who presents with episodes of abdominal discomfort and vomiting overnight and this morning. Melissa is seen at the bedside. She reports she was having abdominal pain and vomiting last night and this morning. has not been able to eat or drink since yesterday. Had one prior SBO, pt is not sure why. Had 1x past abd surgery, distand appendectomy several decades ago. Last owel movement was yesterday morning. Has a little gas earlier today, otherwise not passing any flatus and no BM today. Nauseaus this morning, nausea resolved after zofran No abdominal pain No chest pain, no chest pressure. No fevers chills, gets hot flashes but no new sweats or night sweats Did no take nay medications today Takes metoprolol for blood pressure. No hx of CAD/NE/CHF/[place]. No leg swelling or SoB. No dyspnea. Mild RLQ ttp Medical History: Reviewed Medications: Reviewed Surgical History: Reviewed Family history: Reviewed Allergies: Reviewed Social History: No tobacco product use. Intermittent social etoh use. Code Status: Full Code Allergies Allergy/AdvReac Type Severity Reaction Status Date / Time chlorhexidine Allergy Intermediate RASH/HIVES Verified 11/27/22 14:54 iodine Allergy Intermediate RASH/HIVES Verified 11/27/22 14:54 Home Medications Medication Instructions Recorded Confirmed Type calcium carbonate 600 mg-vitamin 1 cap PO BID 08/06/18 11/27/22 History D3 5 mcg (200 unit) capsule (Calcium 600 + D(3)) vitamins A,C,B-rcbg-jweadm 4,296 1 cap PO BID 08/06/18 11/27/22 History mcg-226 mg-90 mg capsule (PreserVision AREDS) acetaminophen 500 mg tablet 1,000 mg PO Q6H PRN Pain 07/14/19 11/27/22 History (Tylenol Extra Strength) famotidine 20 mg tablet 20 mg PO BID #180 tabs 03/02/22 11/27/22 Rx hydrochlorothiazide 12.5 mg tablet 12.5 mg PO DAILY #90 tabs 05/20/22 11/27/22 Rx pravastatin 40 mg tablet 40 mg PO DAILY #90 tabs 05/20/22 11/27/22 Rx metoprolol tartrate 25 mg tablet 25 mg PO BID #180 tabs 08/15/22 11/27/22 Rx Past Med/Surg History Medical History Fecal urgency GERD (gastroesophageal reflux disease) Hiatal hernia History of colon polyps Hyperlipidemia Hypertension Kidney failure recent admission 07/23/18-07/26/18 d/t dehydration SBO (small bowel obstruction) (~2019) Surgical History History of appendectomy History of bilateral cataract extraction History of biopsy of bladder (~2018) benign History of colonoscopy [facility] [place] DR. Dietz, 2022 History of dilatation and curettage x2 History of esophagogastroduodenoscopy (EGD) (~2019) History of tooth extraction all teeth removed History of vaginal hysterectomy Family History Mother Diabetes Cerebral aneurysm Stroke Father Colorectal cancer Other No family history of adverse response to anesthesia Denies family history of Ovarian cancer Prostate cancer Myocardial infarction Breast cancer Lung cancer Lung disease Social History Smoking Status: Former smoker Tobacco Type: Cigarettes Second Hand Exposure: No; Do You Dip or Chew Tobacco: No; Hx Alcohol Use: No Hx Substance Use: No Preferred Language: Arabic Communication Ability: Effective Visual Impairment: Partially Limited Hearing Ability: Normal Defense Analyst Required: No Beliefs That Will Affect Care: None marital status: Current Living Situation: Spouse current occupational status: retired How many Children do You have: 3 Feels Safe at Home: Yes Childhood Exposure to Second-Hand Smoke: Yes (father smoked) caffeine: No Dental Care, Regularly: No Physical Activity Frequency: Does not Exercise Seatbelt Use: always Sunscreen Use: Yes Assistive Devices: None Review of Systems Review of Systems: All systems reviewed & are unremarkable except as noted in HPI & below Physical Exam Physical Exam: General: A&Ox3. NAD. Cooperative. HEENT: Atraumatic, normocephalic. Vision/hearing intact Pulm: CTAB A&P. -wheezes, -rales, -rhonchi. Symmetrical chest rise. No increased work of breathing. No respiratory distress. Cardiac: RRR, -mrg. Radial pulses intact and symmetrical. Abdominal: Mild RLQ TTP, no rebound TTP. nondistended, soft. BS diminished Ext: warm, dry. No edema,. Results & Data Results & Data Vital Signs (Past 12 Hours) Vital Signs Temp Pulse Resp BP Pulse Ox O2 Del Method 11/27/22 13:15 101 H 15 139/69 99 Room Air 11/27/22 13:26 103 H 11/27/22 13:16 99 H 15 99 Room Air 11/27/22 12:41 36.5 C 112 H 20 151/83 H 100 Room Air PG Care Time/CCT Total # of Minutes Spent Total Time Spent with Patient: Total time spent is greater than 50% in coordination of care (as documented) at patient's floor/unit and/or counseling patient: Coding Level of Care Code 58780 INT INP/OBS CARE MIN Diagnoses SBO (small bowel obstruction) K56.609 GERD (gastroesophageal reflux disease) K21.9 Hyperlipidemia E78.5 Hypertension I10
[2022-11-27] MEDS ORDERED: ONDANSETRON INJ 2 MG/ML 2 ML VIAL IV PRN ×2 (15:46→16:59)
[2022-11-27] MEDS: LACTATED RINGER'S 1,000 ML IV SCH (15:54)
[2022-11-27 16:48] LABS: Appearance Urine Clear (Clear); Bilirubin Urine Negative (Negative); Blood Urine Negative (Negative); Color Urine Yellow; Glucose Urine UA Negative (Negative); Ketones Urine 1+ (Negative); Leukocyte Esterase Urine Negative (Negative); Nitrite Urine Negative (Negative); Protein Urine Negative (Negative); Specific Gravity Urine > 1.045 (1.000-1.030); Urobilinogen Urine Negative (Negative); pH Urine 6.5 (4.5-7.5)
[2022-11-27] MEDS ORDERED: ACETAMINOPHEN 1,000 MG/100 ML VIAL IV PRN (16:59)
[2022-11-27] MEDS: METOPROLOL TARTRATE 1 MG/ML VIAL IV SCH (18:09)
[2022-11-28] MEDS: METOPROLOL TARTRATE 1 MG/ML VIAL IV SCH ×5 (01:30→23:33)
[2022-11-28] MEDS: LACTATED RINGER'S 1,000 ML IV SCH ×2 (04:54→18:13)
[2022-11-28 06:44] LABS: Basophils # (auto) 0.05 K/uL (0-0.2); Basophils % (auto) 0.6 %; Eosinophils % (auto) 1.3 %; Hematocrit (blood only) 38.4 % (37.0-47.0); Hemoglobin 12.6 g/dl (12.0-16.0); Immature Granulocytes # (auto) 0.02 K/uL (0.01-0.20); Immature Granulocytes % (auto) 0.3 %; Lymphocytes % (auto) 21.4 %; Mean Corpuscular Hemoglobin 29.2 pg (25.0-34.0); Mean Corpuscular Hgb Conc 32.8 g/dL (32.0-36.0); Mean Corpuscular Volume 88.9 fL (80.0-100.0); Monocytes # (auto) 0.69 K/uL (0.11-0.59); Monocytes % (auto) 8.7 %; Neutrophils # (auto) 5.37 K/uL (1.40-6.50); Neutrophils % (auto) 67.7 %; Platelet Count 190 K/uL (130-400); RDW Coefficient of Variation 13.1 % (11.5-14.5); RDW Standard Deviation 42.7 fL (36.4-46.3); Red Blood Count 4.32 M/uL (4.20-5.40); White Blood Count 7.93 K/ul (4.8-10.8)
[2022-11-28 07:02] LABS: BUN Creatinine Ratio 14.4 (10-20); Creatinine Clr Calc Pharmacy 47.7 ml/min; Est GFR (African American) 63.9 ml/min; Est GFR (Non-African American) 55.2 ml/min; Magnesium 1.8 mg/dl (1.7-2.4); Phosphorus 2.1 mg/dl (2.5-4.9); Potassium 3.8 mmol/L (3.5-5.1)
--- NOTE | 2022-11-28 07:55 | Hospitalist Progress Note ---
Date of Service November 28, 2022 Assessment & Plan (1) SBO (small bowel obstruction): Plan: SBO, suspect adhesional - Leukocytosis of 12.69 -> improved to 7.93 - CT-A/P: Multiple dilated loops of small bowel are seen compatible with early/partial small bowel obstruction - Lactate 2.5 --> 1.6 after 1 L fluids - Last SBO 2019, did not require NGT - Hx of appendectomy - Agreed to NGT placement if her symptoms worsen or she develops recurrent nausea/vomiting - Continue strict n.p.o. with LR at 80 cc/h - General Surgery consulted and appreciate recommendations, no acute interventions at this time, continue conservative management (2) Hyperlipidemia: Plan: - Resume pravastatin once no longer n.p.o., held on admit (3) Hypertension: Plan: - Oral antihypertensives held while n.p.o., normotensive at admission - Metoprolol 25 mg p.o. twice daily converted to every 6 hours IV 2.5 mg dosing prevent beta-teresa withdrawal, will require telemetry for IV antihypertensive administration (4) CKD (chronic kidney disease) stage 3, GFR 30-59 ml/min: Plan: Cr baseline 1.17-1.4 - Admit Cr 1.14 -> improved to 0.97 Plan DVT prophylaxis: Patient is ambulating in the room, can wear SCDs at nighttime Diet: N.p.o. Disposition: PCU for IV metoprolol CODE STATUS: Full code Admission and Anticipated Discharge Date Admission Date: November 27, 2022 Subjective Patient without any acute events overnight. Fortunately, she reports that she is passing gas, though she has not had a bowel movement. Her abdominal pain is significantly improved as compared to yesterday. Not feeling hungry yet. No other stated complaints. Physical Exam Constitutional: WD/WN, vitals as above Respiratory: normal respiratory effort, lungs clear to auscultation Cardiovascular: RRR, no murmur, no edema Gastrointestinal (Abdomen): Abdomen soft, minimally tender, bowel sounds appreciated Skin: no rashes, warm and dry Psychiatric: A+Ox3, euthymic affect Results & Data Results & Data Vital Signs (Past 12 Hours) Vital Signs Temp Pulse Pulse Resp BP BP Pulse Ox 11/28/22 07:46 36.9 C 88 18 138/75 96 11/28/22 07:25 67 11/28/22 06:45 98 H 134/74 11/28/22 01:45 89 109/57 L 11/28/22 02:32 36.8 C 89 18 109/57 L 96 11/28/22 01:30 95 H 135/65 11/27/22 22:47 36.7 C 93 H 18 126/80 96 11/27/22 23:05 87 11/27/22 22:37 O2 Del Method 11/28/22 07:46 Room Air 11/28/22 07:25 11/28/22 06:45 11/28/22 01:45 11/28/22 02:32 Room Air 11/28/22 01:30 11/27/22 22:47 Room Air 11/27/22 23:05 11/27/22 22:37 Room Air PG Care Time/CCT Total # of Minutes Spent Total Time Spent with Patient: Total time spent is greater than 50% in coordination of care (as documented) at patient's floor/unit and/or counseling patient: Coding Level of Care Code 85427 SUB INP/OBS CARE 2/35MIN Diagnoses SBO (small bowel obstruction) K56.609 Hyperlipidemia E78.5 Hypertension I10 CKD (chronic kidney disease) stage 3, GFR 30-59 ml/min N18.30
--- NOTE | 2022-11-28 08:52 | Surgery Consultation ---
Date of Consultation November 28, 2022 Assessment & Plan (1) SBO (small bowel obstruction): This is an 82yF with a PMH of GERD, CKD, HTN, HLD who presents to the [facility] ED on 11/27/22 with complaints of abdominal pain that started yesterday and associated with nausea/vomiting. She presented to the ER for workup and a CT a/p was obtained that revealed multiple dilated loops of small bowel are seen compatible with early/partial small bowel obstruction. WBC 7 (12), Hbg 12, Cr 0.9. Vitals are stable. On exam patient's abdomen is soft, non distended, with some R mid/lower abdominal discomfort to palpation. Patient states she had an SBO 1 time in the past she was hospitalized for in 2019, but did not require surgery. She has a past surgical history of appendectomy, vaginal hysterectomy, and bladder biopsy. Agree with a course of conservative management with NPO/IVF. No need for NGT at this time unless n/v. May have sips/chips for now. She is passing flatus and pain much better, so likely turning a corner. possible clears later pending progress. Supervising Physician Co-Signing Physician Notes I personally saw and evaluated the patient with Sara Sanders PA-C and agree with the assessment and plan. CT images and results were personally viewed and interpreted by myself, low- grade partial small bowel obstruction She is already feeling improved from yesterday and passing significant flatus We will trial her clear liquids for today and if she continues to have return of bowel function can advance her diet in the morning with possible discharge No plans for surgical intervention We will continue to follow History of Present Illness Attending Physician: Radha Morin, DO History of Present Illness This is an 82yF with a PMH of GERD, CKD, HTN, HLD who presents to the [facility] ED on 11/27/22 with complaints of abdominal pain. She says her pain started around 5am yesterday morning and was "off the charts". This was associated with multiple bouts of nausea/vomiting. She came into the ER due to ongoing symptoms. A CT a/p was obtained that revealed multiple dilated loops of small bowel are seen co mpatible with early/partial small bowel obstruction. Patient states she had an SBO 1 time in the past she was hospitalized for in 2019, but did not require surgery. She has a past surgical history of appendectomy, vaginal hysterectomy, and bladder biopsy. Last ate on Monday (tomato sandwich) and her last BM was around then as well. She denies any fevers/chills, chest pain or shortness of breath. She is feeling better today, the pain in her R side is improving, and she is beginning to pass flatus. Allergies Allergy/AdvReac Type Severity Reaction Status Date / Time chlorhexidine Allergy Intermediate RASH/HIVES Verified 11/27/22 14:54 iodine Allergy Intermediate RASH/HIVES Verified 11/27/22 14:54 Home Medications Medication Instructions Recorded Confirmed Type calcium carbonate 600 mg-vitamin 1 cap PO BID 08/06/18 11/27/22 History D3 5 mcg (200 unit) capsule (Calcium 600 + D(3)) vitamins A,C,F-ndub-cyqefa 4,296 1 cap PO BID 08/06/18 11/27/22 History mcg-226 mg-90 mg capsule (PreserVision AREDS) acetaminophen 500 mg tablet 1,000 mg PO Q6H PRN Pain 07/14/19 11/27/22 History (Tylenol Extra Strength) famotidine 20 mg tablet 20 mg PO BID #180 tabs 03/02/22 11/27/22 Rx hydrochlorothiazide 12.5 mg tablet 12.5 mg PO DAILY #90 tabs 05/20/22 11/27/22 Rx pravastatin 40 mg tablet 40 mg PO DAILY #90 tabs 05/20/22 11/27/22 Rx metoprolol tartrate 25 mg tablet 25 mg PO BID #180 tabs 08/15/22 11/27/22 Rx Patient History Medical History Fecal urgency GERD (gastroesophageal reflux disease) Hiatal hernia History of colon polyps Hyperlipidemia Hypertension Kidney failure recent admission 07/23/18-07/26/18 d/t dehydration SBO (small bowel obstruction) (~2019) Surgical History History of appendectomy History of bilateral cataract extraction History of biopsy of bladder (~2018) benign History of colonoscopy [facility] [place] DR. Dietz, 2022 History of dilatation and curettage x2 History of esophagogastroduodenoscopy (EGD) (~2019) History of tooth extraction all teeth removed History of vaginal hysterectomy Family History Mother Diabetes Cerebral aneurysm Stroke Father Colorectal cancer Other No family history of adverse response to anesthesia Denies family history of Ovarian cancer Prostate cancer Myocardial infarction Breast cancer Lung cancer Lung disease Social History Smoking Status: Never smoker Tobacco Type: Cigarettes Second Hand Exposure: No; Do You Dip or Chew Tobacco: No; Hx Alcohol Use: No Hx Substance Use: No Preferred Language: Sammarinese Communication Ability: Effective Visual Impairment: Partially Limited Hearing Ability: Normal Validation Specialist Required: No Beliefs That Will Affect Care: None marital status: Current Living Situation: Spouse current occupational status: retired How many Children do You have: 3 Other Information That Helps Us Care for You: No Feels Safe at Home: Yes Safety Concerns: Feels Safe At This Time Childhood Exposure to Second-Hand Smoke: Yes (father smoked) caffeine: No Dental Care, Regularly: No Physical Activity Frequency: Does not Exercise Seatbelt Use: always Sunscreen Use: Yes Assistive Devices: None Review of Systems Constitutional: no fever and no chills Respiratory: no dyspnea Cardiovascular: no chest pain Gastrointestinal: + abdominal pain (R sided), + nausea (yesterday, none today) and + vomiting (yesterday, none today) Physical Exam Physical Exam: awake/alert, no distress Respiratory: + abnormal respiratory effort and no respiratory distress Gastrointestinal (Abdomen): Inspection/Auscultation: abdomen not distended Percussion/Palpation: + abdomen tender (some R sided discomfort to palpation) and abdomen soft Results & Data Vital Signs (Past 12 Hours) Vital Signs Temp Pulse Pulse Resp BP BP Pulse Ox 11/28/22 07:46 36.9 C 88 18 138/75 96 11/28/22 07:25 67 11/28/22 06:45 98 H 134/74 11/28/22 01:45 89 109/57 L 11/28/22 02:32 36.8 C 89 18 109/57 L 96 11/28/22 01:30 95 H 135/65 11/27/22 22:47 36.7 C 93 H 18 126/80 96 11/27/22:05 87 11/27/22 22:37 O2 Del Method 11/28/22 07:46 Room Air 11/28/22 07:25 11/28/22 06:45 11/28/22 01:45 11/28/22 02:32 Room Air 11/28/22 01:30 11/27/22 22:47 Room Air 11/27/22 23:05 11/27/22 22:37 Room Air Diagnostic Findings CT abd pelvis IV con only CLINICAL HISTORY: N/V eval for SBO TECHNIQUE: Helical axial images of the abdomen and pelvis were obtained and displayed. Automated dose lowering techniques and/or adjustment according to patient size were utilized for this exam. This exam was performed with intravenous contrast. CT DOSE: 1362.70 mGy.cm COMPARISON: Comparison is made to pelvis 10/22/2018 FINDINGS: Lower chest: No acute abnormality. Liver: Multiple hepatic cysts are seen. Gallbladder and biliary tree: No calcified gallstones. Normal caliber wall. No intra- or extrahepatic biliary ductal dilation. Pancreas: Unremarkable, no focal lesions. Spleen: Unremarkable. Adrenals: Unremarkable. Kidneys and ureters: Multiple renal cysts are seen. Bladder: Unremarkable. Reproductive organs: Patient is status post hysterectomy. Bowel: Multiple dilated loops of small bowel are seen in the right lower quadrant with gradual transition. There is a small hiatal hernia. The colon is not decompressed. Lymph nodes Retroperitoneal: Unremarkable. Pelvic: Unremarkable. Mesenteric: Unremarkable. Peritoneum: Normal. Vessels: Atherosclerotic calcifications are seen. Abdominal wall: A fat-containing umbilical hernia is seen. Bones: Unremarkable. IMPRESSION: Multiple dilated loops of small bowel are seen compatible with early/partial small bowel obstruction. ACT 112: Negative or not required by law. Electronically signed by: Leandro Recinos M.D. 11/27/2022 2:23 PM PG Care Time/CCT Total # of Minutes Spent Total Time Spent with Patient: Total time spent is greater than 50% in coordination of care (as documented) at patient's floor/unit and/or counseling patient: Coding Level of Care Code 56969 INT INP/OBS CARE 1/40MIN Diagnoses SBO (small bowel obstruction) K56.609
--- NOTE | 2022-11-28 14:02 | Electrocardiogram Report ---
Test Reason : Blood Pressure : / mmHG Vent. Rate : 109 BPM Atrial Rate : 109 BPM P-R Int : 168 ms QRS Dur : 098 ms QT Int : 354 ms P-R-T Axes : 083 049 074 degrees QTc Int : 476 ms Sinus tachycardia Otherwise normal ECG When compared with ECG of 14-JUL-2019 11:17, No significant change was found Confirmed by Kb Almanza ([id number]) on 11/28/2022 2:01:45 PM Referred By: REFERRED SELF Confirmed By:Kb Almanza
[2022-11-29 02:57] LABS: Basophils # (auto) 0.04 K/uL (0-0.2); Basophils % (auto) 0.6 %; Eosinophils # (auto) 0.14 K/uL (0-0.50); Eosinophils % (auto) 2.1 %; Immature Granulocytes # (auto) 0.01 K/uL (0.01-0.20); Immature Granulocytes % (auto) 0.2 %; Lymphocytes # (auto) 1.87 K/uL (1.2-3.4); Lymphocytes % (auto) 28.2 %; Mean Corpuscular Hemoglobin 29.5 pg (25.0-34.0); Mean Corpuscular Hgb Conc 33.3 g/dL (32.0-36.0); Mean Corpuscular Volume 88.5 fL (80.0-100.0); Monocytes # (auto) 0.62 K/uL (0.11-0.59); Monocytes % (auto) 9.4 %; Neutrophils # (auto) 3.95 K/uL (1.40-6.50); Neutrophils % (auto) 59.5 %; Platelet Count 170 K/uL (130-400); RDW Standard Deviation 42.2 fL (36.4-46.3); Red Blood Count 4.07 M/uL (4.20-5.40); White Blood Count 6.63 K/ul (4.8-10.8)
[2022-11-29 03:06] LABS: BUN Creatinine Ratio 13.6 (10-20); Calcium 8.9 mg/dl (8.6-10.3); Creatinine Clr Calc Pharmacy 44.9 ml/min; Est GFR (African American) 59.5 ml/min; Est GFR (Non-African American) 51.3 ml/min; Potassium 3.9 mmol/L (3.5-5.1)
[2022-11-29] MEDS: METOPROLOL TARTRATE 1 MG/ML VIAL IV SCH (06:12)
[2022-11-29] MEDS: METOPROLOL TARTRATE 25 MG TAB PO SCH ×2 (08:27→19:27)
--- NOTE | 2022-11-29 09:01 | Hospitalist Progress Note ---
Date of Service November 29, 2022 Assessment & Plan (1) SBO (small bowel obstruction): Plan: SBO, suspect adhesional - Leukocytosis of 12.69 -> improved to 6.63 - CT-A/P: Multiple dilated loops of small bowel are seen compatible with early/partial small bowel obstruction - Lactate 2.5 --> 1.6 after 1 L fluids - Last SBO 2019, did not require NGT - Hx of appendectomy - Agreed to NGT placement if her symptoms worsen or she develops recurrent nausea/vomiting - Clears today, advance as tolerated - General Surgery consulted and appreciate recommendations, no acute interventions at this time, continue conservative management and will follow (2) Hyperlipidemia: Plan: - Resume pravastatin once no longer n.p.o., held on admit (3) Hypertension: Plan: - Oral antihypertensives held while n.p.o., normotensive at admission - Resume metoprolol home dosing (4) CKD (chronic kidney disease) stage 3, GFR 30-59 ml/min: Plan: Cr baseline 1.17-1.4 - Admit Cr 1.14 -> improved to 1.03, within goal range Plan DVT prophylaxis: Patient is ambulating in the room, can wear SCDs at nighttime Diet: clears Disposition: med/surg CODE STATUS: Full code Admission and Anticipated Discharge Date Admission Date: November 27, 2022 Subjective No overnight events, tolerated clears ok, still no BM. Denies chest pain or SOB. Physical Exam Constitutional: WD/WN, vitals as above Respiratory: normal respiratory effort, lungs clear to auscultation Cardiovascular: RRR, no murmur, no edema Gastrointestinal (Abdomen): Abdomen soft, minimally tender, mild distention, bowel sounds appreciated Skin: no rashes, warm and dry Psychiatric: A+Ox3, euthymic affect Results & Data Results & Data Vital Signs (Past 12 Hours) Vital Signs Temp Pulse Pulse Resp BP BP Pulse Ox 11/29/22 07:53 36.6 C 85 16 160/77 H 94 11/29/22 06:27 92 H 137/80 11/29/22 06:12 98 H 161/78 H 11/29/22 02:51 37 C 85 18 132/80 95 11/29/22 00:36 79 11/28/22 23:38 82 11/28/22 23:33 81 140/79 11/28/22 22:51 36.7 C 85 18 142/82 H 96 O2 Del Method 11/29/22 07:53 Room Air 11/29/22 06:27 11/29/22 06:12 11/29/22 02:51 Room Air 11/29/22 00:36 11/28/22 23:38 11/28/22 23:33 11/28/22 22:51 Room Air PG Care Time/CCT Total # of Minutes Spent Total Time Spent with Patient: Total time spent is greater than 50% in coordination of care (as documented) at patient's floor/unit and/or counseling patient: Coding Level of Care Code 98025 SUB INP/OBS CARE 2/35MIN Diagnoses SBO (small bowel obstruction) K56.609 Hyperlipidemia E78.5 Hypertension I10 CKD (chronic kidney disease) stage 3, GFR 30-59 ml/min N18.30
[2022-11-29] MEDS ORDERED: ACETAMINOPHEN 500 MG TAB PO PRN (10:08)
--- NOTE | 2022-11-29 10:35 | Surgery Progress Note ---
Date of Service November 29, 2022 Assessment & Plan (1) SBO (small bowel obstruction): Plan: Patient resting in bed, Still having LLQ pain with palpation Reports has not had a BM yet but is passing flatus Denies Nausea, vomiting tolerating clear liquid diet BP mildly elevated other white VSS Encouraged walk the halls WBC 6.6 Will continue to monitor Admission and Anticipated Discharge Date Admission Date: November 27, 2022 Supervising Physician Co-Signing Physician Notes I personally saw and evaluated the patient with Vera AMBRIZ and agree with the assessment and plan. 82-year-old female with partial small bowel obstruction She is tolerating her clears and passing flatus but no bowel movement yet We will keep her on clears today until she has some more meaningful return of bowel function We will continue to follow Subjective Patient resting in bed Still having LLQ pain with palpation Reports has not had a BM yet but is passing flatus Denies Nausea, vomiting Review of Systems Constitutional: no fever and no chills Respiratory: no dyspnea Cardiovascular: no chest pain Gastrointestinal: + abdominal pain; no nausea and no vomiting Genitourinary: no problem reported Physical Exam Constitutional: cooperative and comfortable; no acute distress Respiratory: normal respiratory effort and able to speak in complete sentences; no respiratory distress and does not use accessory muscles Cardiovascular: Rate/Rhythm: regular rate Gastrointestinal (Abdomen): Inspection/Auscultation: + abdomen distended Percussion/Palpation: + abdomen tender and abdomen soft; no guarding and abdomen not rigid Results & Data Vital Signs (Past 12 Hours) Vital Signs Temp Pulse Pulse Resp BP BP Pulse Ox 11/29/22 10:10 97.5 F L 79 16 148/76 H 94 11/29/22 07:53 97.9 F 85 16 160/77 H 94 11/29/22 06:27 92 H 137/80 11/29/22 06:12 98 H 161/78 H 11/29/22 02:51 98.6 F 85 18 132/80 95 11/29/22 00:36 79 11/28/22 23:38 82 11/28/22 23:33 81 140/79 11/28/22 22:51 98.1 F 85 18 142/82 H 96 O2 Del Method 11/29/22 10:10 Room Air 11/29/22 07:53 Room Air 11/29/22 06:27 08/15/23 06:12 11/29/22 02:51 Room Air 11/29/22 00:36 11/28/22 23:38 11/28/22 23:33 11/28/22 22:51 Room Air PG Care Time/CCT Total # of Minutes Spent Total Time Spent with Patient: Total time spent is greater than 50% in coordination of care (as documented) at patient's floor/unit and/or counseling patient: Coding Level of Care Code 38669 SUB INP/OBS CARE 05/11MIN Diagnoses SBO (small bowel obstruction) K56.609
[2022-11-29] MEDS ORDERED: POLYETHYLENE (MIRALAX) 17 GM PACK PO PRN (13:53)
[2022-11-29] MEDS: DOCUSATE SODIUM/SENNA 50/8.6MG TAB PO SCH (14:38)
[2022-11-30 08:05] LABS: Basophils # (auto) 0.04 K/uL (0-0.2); Basophils % (auto) 0.6 %; Eosinophils # (auto) 0.08 K/uL (0-0.50); Eosinophils % (auto) 1.2 %; Hematocrit (blood only) 38.3 % (37.0-47.0); Hemoglobin 12.8 g/dl (12.0-16.0); Immature Granulocytes # (auto) 0.01 K/uL (0.01-0.20); Immature Granulocytes % (auto) 0.2 %; Lymphocytes # (auto) 1.63 K/uL (1.2-3.4); Lymphocytes % (auto) 24.7 %; Mean Corpuscular Hemoglobin 29.2 pg (25.0-34.0); Mean Corpuscular Hgb Conc 33.4 g/dL (32.0-36.0); Mean Corpuscular Volume 87.2 fL (80.0-100.0); Mean Platelet Volume 8.9 fL (9.4-12.4); Monocytes # (auto) 0.62 K/uL (0.11-0.59); Monocytes % (auto) 9.4 %; Neutrophils # (auto) 4.21 K/uL (1.40-6.50); Neutrophils % (auto) 63.9 %; Platelet Count 192 K/uL (130-400); RDW Coefficient of Variation 12.8 % (11.5-14.5); RDW Standard Deviation 40.8 fL (36.4-46.3); Red Blood Count 4.39 M/uL (4.20-5.40); White Blood Count 6.59 K/ul (4.8-10.8)
[2022-11-30 08:13] LABS: BUN Creatinine Ratio 11.2 (10-20); Calcium 9.3 mg/dl (8.6-10.3); Creatinine Clr Calc Pharmacy 47.2 ml/min; Est GFR (African American) 63.1 ml/min; Est GFR (Non-African American) 54.5 ml/min; Potassium 3.6 mmol/L (3.5-5.1)
[2022-11-30] MEDS: METOPROLOL TARTRATE 25 MG TAB PO SCH (08:13)
[2022-11-30] MEDS: DOCUSATE SODIUM/SENNA 50/8.6MG TAB PO SCH (08:13)
--- NOTE | 2022-11-30 09:30 | Surgery Progress Note ---
Date of Service November 30, 2022 Assessment & Plan (1) SBO (small bowel obstruction): Plan: Patient here with concern for SBO She is passing flatus and had 2 small BMs tolerating clears and currently denies any nausea/vomiting or pain will adv diet to low fiber if tolerates may go home later today Admission and Anticipated Discharge Date Admission Date: November 29, 2022 Supervising Physician Co-Signing Physician Notes I personally saw and evaluated the patient with Sara Sanders PA-C and agree with the assessment and plan. 82-year-old female with partial small bowel obstruction, improved Advance to a low fiber diet today If she tolerates that she can be discharged Subjective Patient is feeling well. No nausea/vomiting. Tolerating clears. Reports + flatus and small BM x2. Wants to go home. Physical Exam Physical Exam: awake/alert, no distress Respiratory: normal respiratory effort Gastrointestinal (Abdomen): Percussion/Palpation: abdomen soft; abdomen nontender Results & Data Vital Signs (Past 12 Hours) Vital Signs Temp Pulse Resp BP Pulse Ox O2 Del Method 11/30/22 07:43 36.9 C 76 18 141/78 H 95 Room Air PG Care Time/CCT Total # of Minutes Spent Total Time Spent with Patient: Total time spent is greater than 50% in coordination of care (as documented) at patient's floor/unit and/or counseling patient: Coding Level of Care Code 69268 SUB INP/OBS CARE 1/25MIN Diagnoses SBO (small bowel obstruction) K56.609
--- NOTE | 2022-11-30 14:31 | Discharge Summary ---
Discharge Summary Date of Service November 30, 2022 Notes For Next Care Provider Medication Changes From Visit None Admission HPI Per Admitting Provider Melissa Toribio is an 82-year-old female with a past medical history of GERD, CKD, obesity, prior small bowel obstructions who presents with episodes of abdominal discomfort and vomiting overnight and this morning. Melissa is seen at the bedside. She reports she was having abdominal pain and vomiting last night and this morning. has not been able to eat or drink since yesterday. Had one prior SBO, pt is not sure why. Had 1x past abd surgery, distand appendectomy several decades ago. Last owel movement was yesterday morning. Has a little gas earlier today, otherwise not passing any flatus and no BM today. Nauseaus this morning, nausea resolved after zofran No abdominal pain No chest pain, no chest pressure. No fevers chills, gets hot flashes but no new sweats or night sweats Did no take nay medications today Takes metoprolol for blood pressure. No hx of CAD/RI/CHF/[place]. No leg swelling or SoB. No dyspnea. Mild RLQ ttp Medical History: Reviewed Medications: Reviewed Surgical History: Reviewed Family history: Reviewed Allergies: Reviewed Social History: No tobacco product use. Intermittent social etoh use. Code Status: Full Code Principal Dx & Hospital Course #1 = Principal Diagnosis (1) SBO (small bowel obstruction): SBO, suspect adhesional-now resolve with conservative measures, bowel rest Now passing flatus, moving bowels Tolerating low fiber diet prior to discharge, no pain, doing well advised dc to home on low fiber diet x 1 more week and then gradually return to reg diet - Leukocytosis resolved, no fevers - CT-A/P: Multiple dilated loops of small bowel are seen compatible with early/partial small bowel obstruction -Appreciate Gen Surgery evaluation Stable for dc to home (2) Hyperlipidemia: - Resume pravastatin (3) Hypertension: - Resume metoprolol home dosing (4) CKD (chronic kidney disease) stage 3, GFR 30-59 ml/min: Cr baseline 1.17-1.4 - Admit Cr 1.14 -> improved to 1.03 Plan Dispo-dc to home Discharge Exam Constitutional WD/WN, vitals as above Respiratory normal respiratory effort, lungs clear to auscultation Cardiovascular RRR, no murmur, no edema Gastrointestinal (Abdomen) normal bowel sounds, soft, nontender, no hepatosplenomegaly Psychiatric A+Ox3, euthymic affect Updated Medication List Medication Instructions Recorded Confirmed Type calcium carbonate 600 mg-vitamin 1 cap PO BID 08/06/18 11/27/22 History D3 5 mcg (200 unit) capsule (Calcium 600 + D(3)) vitamins A,C,P-cktt-zivabw 4,296 1 cap PO BID 08/06/18 11/27/22 History mcg-226 mg-90 mg capsule (PreserVision AREDS) acetaminophen 500 mg tablet 1,000 mg PO Q6H PRN Pain 07/14/19 11/27/22 History (Tylenol Extra Strength) famotidine 20 mg tablet 20 mg PO BID #180 tabs 03/02/22 11/27/22 Rx hydrochlorothiazide 12.5 mg tablet 12.5 mg PO DAILY #90 tabs 05/20/22 11/27/22 Rx pravastatin 40 mg tablet 40 mg PO DAILY #90 tabs 05/20/22 11/27/22 Rx metoprolol tartrate 25 mg tablet 25 mg PO BID #180 tabs 08/15/22 11/27/22 Rx Hospital Stay Data Consultations 11/27/22 14:47 ED Decision to Admit Stat 11/28/22 07:50 Consult General Surgery Routine Diagnostic Imagining Performed 11/27/22 12:54 CT Abd and Pelvis [CT abd pelvis IV con only] Stat Pending Results Patient Have Any Pending Studies at Discharge: No Discharge Instructions Given to Patient (Per Discharging Provider) You were admitted for a partial bowel blockage which resolved on its own. Please ensure your bowels continue to move regularly. You can walk around frequently to keep things regular. Total Time Total Time Spent Total Time Spent (In Minutes): 35 min Coding Level of Care Code 05198 INP/OBS DISCH >30 MIN Diagnoses SBO (small bowel obstruction) K56.609 Hyperlipidemia E78.5 Hypertension I10 CKD (chronic kidney disease) stage 3, GFR 30-59 ml/min N18.30
== END 2022-11-30 14:59 | disposition home or self-care (01) | DRG 389 ==
LOC: ED 12:36 → 4W 12:36 → SUATTDRO 15:29 → 4W 16:42 → 3N 11-29 10:13 → SUATTDRO 11-29 16:05